=== PATIENT | male | born 1965 | race Caucasian/White ===

== ENCOUNTER 2021-09-20 12:19 | Emergency (ER) | payer OTHER, SELFPAY ==
--- NOTE | ~2021-09-20 | CT_ITS ---
EXAMINATION: CT abdomen pelvis w con DATE: 09/20/2021 13:45 INDICATION: Abdominal pain TECHNIQUE: Computed tomography (CT) of the abdomen and pelvis was performed with 100 mL Omnipaque-350 intravenous contrast. Automated exposure control and iterative reconstruction technique were employe d. The dose-length product was 593.65 mGy-cm. COMPARISON: None. FINDINGS: Mild groundglass opacities the bilateral lung bases with some smooth septal line thickening in the ba silar left lower lobe consistent with mild pulmonary edema. No pleural effusion or pneumothorax. Hear t size is normal. Small pericardial effusion. Mild wall thickening in the distal esophagus suspicious for esophagitis. Subcentimeter low-attenuation cyst in the left hepatic lobe. Gallbladder, spleen, p ancreas and right kidney are normal. 4.7 cm cyst at the upper pole of the left kidney. There is nodul ar thickening of the bilateral adrenal glands with 1.7 cm enhancing nodule in the left and with 2 hyp oenhancing nodular regions on the right, the larger measuring 2.3 x 1.5 cm bowels including the appen jono are normal. Small amount of scattered colonic stool. Bladder is normal. Prostatomegaly measuring 4.4 x 3.2 cm. No free intraperitoneal gas or fluid. No pathologically enlarged abdominal or pelvic ly mphadenopathy. Mild lumbar and lower thoracic spondylosis. 9 mm lytic lesion at the inferior left fem oral head. IMPRESSION: 1. No acute intra-abdominal/pelvic process. 2. Small pericardial effusion. 3. Wall thickening the distal esophagus suspicious for esophagitis which could be infectious, inflamm atory in etiology or due to reflux. 4. Nodular thickening the bilateral adrenal glands, enhancement in the left and lower attenuation in the right which raises concern for metastatic disease. Correlate with any prior outside imaging. 5. Indeterminate 9 mm lytic lesion at the left femoral head also raising suspicion for metastatic dis ease. Most helpful for determining pole of suspicion would be comparison with any prior outside imagi ng. Reviewed, dictated and finalized at location A. IMPRESSION: 1. No acute intra-abdominal/pelvic process. 2. Small pericardial effusion. 3. Wall thickening the distal esophagus suspicious for esophagitis which could be infectious, inflammatory in etiology or due to reflux. 4. Nodular thickening the bilateral adrenal glands, enhancement in the left and lower attenuation in the right which raises concern for metastatic disease. Co rrelate with any prior outside imaging. 5. Indeterminate 9 mm lytic lesion at the left femoral head also raising suspic ion for metastatic disease. Most helpful for determining pole of suspicion woul d be comparison with any prior outside imaging.
[2021-09-20 12:22] VITALS: BP 111/88; PULSE 134; RESP 18; TEMP 36.3; O2SAT 97
--- NOTE | 2021-09-20 12:30 | ED.GENADULT ---
HPI - General Adult General Chief complaint: Nausea/Vomiting/Diarrhea Stated complaint: constipation Time Seen by Provider: 09/20/21 12:26 Source: RN notes reviewed History of Present Illness HPI narrative: Patient presents emergency department from home for nausea vomiting and abdominal pain. Patient states that he has been unable to have bowel movement for the past 11 days he states that beginning 6 days ago he began to experience nausea vomiting is been unable to keep anything down. States that the symptoms are associated with pain in the bilateral lower abdomen described as cramping in nature denies any fevers or chills, chest pain shortness of breath or any other symptoms patient does have a history of lung cancer is currently going through radiation and chemo with his last chemo treatment 1 week ago he has followed at [facility] Related Data Allergies Allergy/AdvReac Type Severity Reaction Status Date / Time codeine AdvReac Other Verified 09/20/21 12:48 Review of Systems Review of Systems: Gen.: Denies fevers or chills ENT: Denies congestion Respiratory: Denies shortness of breath or cough CV: Denies chest pain or palpitations GI: See HPI denies burning, urgency, frequency or hematuria Musculoskeletal: Denies back pain or muscle pain Neuro: Denies numbness, tingling, weakness or focal weakness Skin: Denies rash Except as documented, all other systems reviewed and negative [facility] Past Medical History Medical History (Updated 09/20/21 @ 17:21 by Julito Kurtz DO) Lung cancer Social History Social History (Updated 09/20/21 @ 12:31 by Julito Kurtz DO) Smoking status: Former smoker Exam Narrative: APPEARANCE: No acute distress, nontoxic, resting in bed HEENT: Normocephalic, atraumatic, OMM RESPIRATORY: No respiratory distress, clear to auscultation bilaterally with no rhonchi wheezing or rales CARDIOVASCULAR: Tachycardic and regular s murmur ABDOMINAL: Soft nondistended tender palpation right lower quadrant left lower quadrant no tenderness right upper quadrant left upper quadrant no rebound or guarding MUSCULOSKELETAl: Moves all extremities. No clubbing, cyanosis or edema. NEURO: Awake and alert. Following commands, speech normal, no focal deficits SKIN:: Warm, dry. Normal Color PSYCHIATRIC: Normal affect/mood Course Course Emergency Course: Patient states he has had ongoing problem with nausea vomiting states that he needs referral to GI states he is on several antiemetics at home Called discussed with Dr. Manuel for oncology presentation work-up Mr. Manuel the patient agrees with plan for discharge with follow-up as an outpatient Patient able to drink in ED with no difficulty Discussed with patient results of workup and diagnosis. Discussed need for follow-up with primary care, proper use of medication, and reasons to return to the emergency department. Patient understands and agrees to current treatment plan Vital Signs Vital signs: Vital Signs Temperature 97.4 F L 09/20/21 12:22 Pulse Rate 134 H 09/20/21 12:22 Respiratory Rate 18 09/20/21 12:22 Blood Pressure 111/88 09/20/21 12:22 Pulse Oximetry 97 09/20/21 12:22 Temperature 97.4 F L 09/20/21 12:22 Pulse Rate 97 09/20/21 14:06 Respiratory Rate 19 09/20/21 14:06 Blood Pressure 108/75 09/20/21 14:06 Pulse Oximetry 100 09/20/21 14:06 Medical Decision Making Vital Signs Vital Signs: Vital Signs Temperature 97.4 F L 09/20/21 12:22 Pulse Rate 134 H 09/20/21 12:22 Respiratory Rate 18 09/20/21 12:22 Blood Pressure 111/88 09/20/21 12:22 Pulse Oximetry 97 09/20/21 12:22 Temperature 97.4 F L 09/20/21 12:22 Pulse Rate 97 09/20/21 14:06 Respiratory Rate 19 09/20/21 14:06 Blood Pressure 108/75 09/20/21 14:06 Pulse Oximetry 100 09/20/21 14:06 Lab Data Result diagrams: 09/20/21 12:49 09/20/21 12:49 Labs: Lab Results 09/20/2109/20
[2021-09-20 12:55] LABS: Basophils Percent Auto 0.3 % (0.2-1.2); Eosinophils Percent Auto 0.6 % (0-4.4); Hematocrit 37.6 % (42.0-52.0); Hemoglobin 12.6 g/dL (14.0-18.0); Immature Granulocyte Absolute 0.02 K/mm3 (0.00-0.031); Immature Granulocyte Percent A 0.6 % (0-0.5); Lymphocytes Absolute Auto 1.07 K/mm3 (0.9-3.2); Lymphocytes Percent Auto 34.2 % (18.3-44.2); Mean Corpuscular HGB Conc 33.5 g/dl (32-36); Mean Corpuscular Hemoglobin 30.1 pg (26-34); Mean Platelet Volume 10.4 fl (7.4-10.4); Monocytes Absolute Auto 0.9 K/mm3 (0.1-0.6); Neutrophils Absolute Auto 1.1 K/mm3 (1.3-6.7); Neutrophils Percent Auto 34.3 % (45.5-73.1); Platelet Count Result 141 k/mm3 (150-375); Red Blood Count 4.18 M/mm3 (4.6-6.20); Red Cell Distribution Width 13.7 % (11.5-14.5); White Blood Count 3.1 K/mm3 (4.5-10.0)
[2021-09-20] MEDS: ONDANSETRON INJ 4 MG/2 ML VIAL IV PUSH (12:59)
[2021-09-20] MEDS: SODIUM CHLORIDE 0.9% IV 1,000 ML 999 ML IV CONT (13:00)
[2021-09-20 13:05] LABS: Alanine Aminotransferase 47 U/L (4-50); Albumin Level 4.3 g/dL (3.5-5.1); Alkaline Phosphatase 82 U/L (38-126); Anion Gap 9 mmol/L (8-16); Aspartate Amino Transferase 38 U/L (17-59); Bilirubin,Total 0.9 mg/dL (0.2-1.3); Blood Urea Nitrogen 17 mg/dL (9-20); Calcium 9.3 mg/dL (8.4-10.2); Carbon Dioxide 27 mmol/L (22-30); Chloride 96 mmol/L (98-107); Estimated CRCL calculation 86 ml/min; Estimated Glomerular Filt Rate > 60; Glucose 180 mg/dL (65-110); Lipase 17 U/L (23-300); Magnesium 2.1 mg/dL (1.6-2.3); Potassium 3.9 mmol/L (3.4-5.0); Sodium 132 mmol/L (137-145)
[2021-09-20 13:05] LABS: Lactic Acid Reflex 1.9 mmol/L (0.7-2.1)
[2021-09-20 13:07] LABS: INR 1.1; Prothrombin Time 13.3 Seconds (11.1-14.7)
--- NOTE | 2021-09-20 13:07 | PC.NURSE ---
This RN talked with MD about morphine and Pt allergy to codeine, MD Kurtz will come to the bedside and speak with Pt this RN will hold medication until MD gives the authority to give medication. Pt cont to be stable at this time.
[2021-09-20 13:08] LABS: Partial Thromboplastin Time 31.5 SECONDS (22.3-36.8)
[2021-09-20 13:20] VITALS: BP 117/83; PULSE 97; RESP 18
[2021-09-20 13:49] VITALS: PULSE 99; RESP 24; O2SAT 100
[2021-09-20 14:06] VITALS: BP 108/75; PULSE 97; RESP 19; O2SAT 100
--- NOTE | 2021-09-20 15:54 | PC.NURSE ---
Patient given a macey mist and crackers. Advised to notify RN if he had any n/v.
--- NOTE | 2021-09-20 16:31 | PC.NURSE ---
Patient tolerated crackers and macey mist without n/v. States he still has pain and gas.
[2021-09-20 17:37] VITALS: BP 103/79; PULSE 95; RESP 18; O2SAT 99
== END 2021-09-20 17:37 | disposition home or self-care (01) ==
PROVIDERS: Emergency Provider Emergency Medicine; PCP Nurse Practitioner Family
DX: R11.2 Nausea with vomiting, unspecified (principal); D61.818 Other pancytopenia; C34.90 Malignant neoplasm of unspecified part of unspecified bronchus or lung; Z79.899 Other long term (current) drug therapy; Z87.891 Personal history of nicotine dependence; M89.9 Disorder of bone, unspecified; R93.3 Abnormal findings on diagnostic imaging of other parts of digestive tract
CPT/HCPCS: 36415; 74177; 80053; 83605; 83690; 83735; 85025; 85610; 85730; 96361; 96374; 99284; J0131; J2405; J7030; Q9967

== ENCOUNTER 2021-09-25 17:12 | Inpatient (IN) | payer OTHER, SELFPAY ==
[2021-09-25] VITALS (15 sets, daily range): BP systolic 99–130; BP diastolic 61–89; PULSE 90–115; RESP 16–28; TEMP 36.9–37; O2SAT 94–100; BMI 25.4
--- NOTE | ~2021-09-25 | CT_ITS ---
EXAMINATION: CTA chest PE protocol EXAM DATE: 09/30/2021 23:23 INDICATION: Low 02 sat/tachycardia. TECHNIQUE: Spiral CTA of the chest (pulmonary arteries) was performed with 100 cc Omnipaque 350 intr avenous contrast injection. Images were acquired during the pulmonary arterial phase. Coronal maxi mum intensity projection 3D-reconstructions were created by the technologist on dedicated workstation . Axial, coronal and sagittal reformatted images were reviewed. The dose-length product (DLP) for t his examination was 494.28 mGy-cm. The exposure was tailored according to patient size (auto mA exp osure control), and iterative reconstruction (ASIR) was used as additional dose reduction technique. There is no prior study for comparison. FINDINGS: Pulmonary arteries are well opacified and without intraluminal filling defects. No thora cic aortic dissection. There is spiculated left upper lobe nodule measuring 2.0 x 1.3 cm, appearance most consistent with pr imary lung cancer. There is moderate to severe upper lobe predominant emphysema. There is basilar rosa isela ewhat groundglass airspace disease with more confluent and patchy distribution. There is ill-defined infiltrative appearing soft tissue density in the aorta pulmonary window and in the left hilum, appea leroy could indicate metastatic disease from suspected lung cancer. Right hilar lymph node enlarged a t 1.6 x 2.1 cm. Recommend PET/CT. Groundglass opacity can be caused acutely by edema, infection (viral pneumonia or PCP in immunocompro mised patients), or hemorrhage. It can also be caused by chronic processes such as hypersensitivity pneumonitis, nonspecific interstitial pneumonitis (NSIP), cryptogenic organized pneumonia, desquamati ve interstitial pneumonitis(DIP). There are no pleural or pericardial effusions. Tracheobronchial tree is patent. There is no pneum othorax. Heart normal in size. Bilateral adrenal gland nodularity, possible metastatic disease ve rsus adenomas. There is thoracic spondylosis without osteoblastic or osteolytic lesions identified. IMPRESSION: 1. Left upper lobe spiculated nodule most consistent with primary lung cancer. 2. Infiltrative appearing left hilar and aortopulmonary window soft tissue. 3. Right hilar lymphadenopathy. 4. Rather diffuse but basilar predominant groundglass airspace disease, could be edema but nonspecif ic with differential considerations above. 5. Bilateral adrenal gland nodule, indeterminate. 6. Recommend PET/CT. Reviewed, dictated and finalized at location G. IMPRESSION: 1. Left upper lobe spiculated nodule most consistent with primary lung cancer. 2. Infiltrative appearing left hilar and aortopulmonary window soft tissue. 3. Right hilar lymphadenopathy. 4. Rather diffuse but basilar predominant groundglass airspace disease, could be edema but nonspecific with differential considerations above. 5. Bilateral adrenal gland nodule, indeterminate. 6. Recommend PET/CT.
--- NOTE | ~2021-09-25 | XR_ITS ---
XR chest 2V DATE: 09/25/2021 19:20 INDICATION: Cough. Vomiting. Evaluate for aspiration. Lung cancer. Hypertension. TECHNIQUE: AP and lateral views COMPARISON: None FINDINGS: Normal heart size. No hilar or mediastinal enlargement. There is a sparsity of bronchovascular markings in the right upper lung likely due to bullous change. Mild accentuation of interstitial markings is noted throughout the lung huizar.. The findings likely represent bullous emphysema and pulmonary fibrosis. No pulmonary consolidation, pleural effusion, pulmonary vascular congestion or pneumothorax is detect ed. There is osteoarthritic change at the included left glenohumeral joint. There is degenerative change at the acromion clavicular joints. IMPRESSION: Bullous emphysema and chronic interstitial changes No pulmonary infiltrate or consolidation is evident Reviewed, dictated and finalized at location A.
--- NOTE | ~2021-09-25 | NM_ITS ---
EXAM: NM gastric emptying study DATE: 10/05/2021 12:15 INDICATION: Nausea and vomiting. TECHNIQUE: A gastric emptying study was performed using the methodology of Ashvin COMBS, et al. J Nucl Med 2007; 48:568-572. The patient was given a meal consisting of 2 scrambled eggs labeled with 0.968 mCi Tc-99m sulfur colloid, 2 slices of toast, two packages of jam, and approximately 120 mL of water . Simultaneous anterior and posterior 1-min images of the abdomen were obtained with the patient supi ne at multiple time points over a total period of 2 hours and 45 minutes at which point the patient v omited. The geometric mean of anterior and posterior views was determined, and the percentage retenti on was calculated for each time point. COMPARISON: CT abdomen and pelvis 09/20/2021 FINDINGS: Gastric retention of the radiotracer-labeled meal was 99% and 95% at the 1-hour and 2-hour time points, respectively. With this technique, apparent rapid gastric emptying is suggested by <30% gastric retention at 1 hour. Delayed gastric emptying is defined by gastric retention of >90% at 1 h our, >60% retention at 2 hours, or >10% retention at 4 hours. IMPRESSION: 1. Delayed gastric emptying. Reviewed, dictated and finalized at location A.
--- NOTE | 2021-09-25 17:20 | ED.NAVMDI ---
HPI - Nausea/Vomiting/Diarrhea General Chief complaint: Nausea/Vomiting/Diarrhea Stated complaint: N/V/ CHEMO Time Seen by Provider: 09/25/21 17:17 Source: patient Mode of arrival: ambulatory Limitations: no limitations History of Present Illness HPI Narrative: Patient is a 56-year-old male who presents the ED with report of nausea and vomiting. Patient has a history of metastatic lung cancer and is currently receiving chemotherapy infusion treatment [id number] (Keytruda, Alimta) at [facility] under Dr. Metcalf. His last chemotherapy treatment was 2 weeks ago, with the next treatment on the . He reports he has had nausea and vomiting for 1 week. He states he is unable to keep down any food for the past week and can only take small sips of water. He states he can go to an entire day without urinating as he is hardly drinking anything. He did urinate a small amount this morning. Patient was seen in the ED for his N/V on 09/20, at which point he was given fluids and Zofran and passed a p.o. challenge before being discharged home. Patient reports he began vomiting again that night. He does have Reglan and Zofran at home, but denies any relief with this. He notified his oncologist of his ED visit and is scheduled to see a car shagger, Dr. Joseph, on 10/05 in [place]. Patient reported having constipation last week, but states he had a bowel movement 2 days ago, which was diarrhea. No rectal bleeding. He also mentions feeling weak and fatigued and having shortness of breath, described as though he cannot catch his breath. He denies any abdominal pain, cough, congestion, fever, chills, chest pain, dysuria, hematuria, focal weakness. Related Data Home Medications Medication Instructions Recorded Confirmed albuterol sulfate 2 puff INHALATION Q4H PRN 09/25/21 09/25/21 dronabinol 2.5 mg PO BID 09/25/21 09/25/21 folic acid 1 mg PO DAILY 09/25/21 09/25/21 lactulose [Enulose] 15 ml PO TID PRN 09/25/21 09/25/21 lorazepam 1 mg PO HS 09/25/21 09/25/21 metformin 1,000 mg PO BID 09/25/21 09/25/21 metoclopramide HCl 5 mg PO TID 09/25/21 09/25/21 ondansetron 4 mg PO Q8H PRN 09/25/21 09/25/21 ondansetron HCl 8 mg PO Q4H PRN 09/25/21 09/25/21 pantoprazole 40 mg PO HS 09/25/21 09/25/21 Allergies Allergy/AdvReac Type Severity Reaction Status Date / Time codeine AdvReac Other Verified 09/25/21 22:45 Review of Systems Review of Systems: CONSTITUTIONAL: Reports fatigue, generalized weakness. Denies fever, chills, or sweats. ENT: Denies rhinorrhea, congestion. CARDIOVASCULAR: Denies chest pain. RESPIRATORY: Reports shortness of breath. Denies cough. GASTROINTESTINAL: Reports nausea, vomiting, diarrhea. Denies abdominal pain. GENITOURINARY: Reports oliguria. Denies dysuria or hematuria. NEUROLOGIC: Denies headache, numbness, or focal weakness. All systems reviewed & are unremarkable except as noted in HPI and below PMFSH Past Medical History Medical History (Updated 09/25/21 @ 21:13 by Bernie Perrin PA-C) Hypertension Lung cancer Surgical History Surgical History (Updated 09/25/21 @ 18:18 by Bernie Perrin PA-C) No pertinent past surgical history Family History Family History (Updated 09/25/21 @ 23:07 by Dania Fuentes RN) Sibling Throat cancer Social History Social History (Updated 09/25/21 @ 18:19 by Bernie Perrin PA-C) Years smoked: 40 Smoking status: Former smoker Tobacco type: cigarettes Smoking end date: 12/08/20 Alcohol intake: never Substance use: never Substance use type: does not use Spiritual care concerns: No Exam Narrative: GENERAL: Chronically ill appearing, non-toxic, in no acute distress. HEAD: Normocephalic, atraumatic. EYES: EOMI, conjunctivae clear bilaterally. THROAT: Pharynx clear, no exudate. MMs dry. NECK: Supple. No adenopathy, no masses. RESPIRATORY: Airway patent. Tachypnea. Clear to auscultation bilaterally, no rales, rhonchi, wheezing. CARDIOVASCULAR:
[2021-09-25 18:04] LABS: Basophils Percent Auto 0.3 % (0.2-1.2); Eosinophils Absolute Auto 0.1 K/mm3 (0-0.3); Eosinophils Percent Auto 1.2 % (0-4.4); Hematocrit 37.6 % (42.0-52.0); Hemoglobin 12.4 g/dL (14.0-18.0); Immature Granulocyte Absolute 0.09 K/mm3 (0.00-0.031); Immature Granulocyte Percent A 1.2 % (0-0.5); Lymphocytes Absolute Auto 1.12 K/mm3 (0.9-3.2); Lymphocytes Percent Auto 15.2 % (18.3-44.2); Mean Corpuscular Hemoglobin 30.3 pg (26-34); Mean Corpuscular Volume 91.9 fl (80-100); Mean Platelet Volume 10.6 fl (7.4-10.4); Monocytes Absolute Auto 2.5 K/mm3 (0.1-0.6); Monocytes Percent Auto 34.4 % (2.6-8.5); Neutrophils Absolute Auto 3.5 K/mm3 (1.3-6.7); Neutrophils Percent Auto 47.7 % (45.5-73.1); Platelet Count Result 188 k/mm3 (150-375); Red Blood Count 4.09 M/mm3 (4.6-6.20); Red Cell Distribution Width 14.1 % (11.5-14.5); White Blood Count 7.4 K/mm3 (4.5-10.0)
[2021-09-25] MEDS: ONDANSETRON INJ 4 MG/2 ML VIAL IV PUSH (18:04)
[2021-09-25] MEDS: SODIUM CHLORIDE 0.9% IV 1,000 ML 999 ML IV CONT ×2 (18:04→20:06)
[2021-09-25 18:18] LABS: Alanine Aminotransferase 28 U/L (4-50); Albumin Level 4.2 g/dL (3.5-5.1); Alkaline Phosphatase 77 U/L (38-126); Anion Gap 11 mmol/L (8-16); Aspartate Amino Transferase 35 U/L (17-59); Bilirubin,Total 0.8 mg/dL (0.2-1.3); Blood Urea Nitrogen 11 mg/dL (9-20); Calcium 8.9 mg/dL (8.4-10.2); Carbon Dioxide 23 mmol/L (22-30); Chloride 95 mmol/L (98-107); Estimated CRCL calculation 95 ml/min; Estimated Glomerular Filt Rate > 60; Glucose 124 mg/dL (65-110); Lipase 17 U/L (23-300); Potassium 3.9 mmol/L (3.4-5.0); Sodium 129 mmol/L (137-145)
[2021-09-25] MEDS: METOCLOPRAMIDE HCL INJ 10 MG/2 ML VIAL IV PUSH (20:09)
--- NOTE | 2021-09-25 21:03 | PM.IMHP ---
H&P: HPI History of Present Illness Date/Time: 09/25/21 21:03 Chief Complaint: Nausea and vomiting. Narrative: This is a 56-year-old male with past medical history significant for lung cancer with metastatic disease undergoing radiation and chemotherapy. Patient presents to the emergency room due to nausea vomiting for the last 10-12 days or so with constipation had 1 bowel movement and he was diarrhea has not been able to eat any food due to nausea and vomiting unrelenting patient denies any fevers rigors chills cough sputum production shortness of breath he feels fatigue, and decreased stamina. Preliminary workup has been significant for sodium of 129, a chest x-ray was significant for bullous disease but no infiltrates. Decision has been made to admit patient for further evaluation, management and treatment. Review of Systems Review of Systems: Nausea vomiting, constipation, fatigue. Weight loss. Constitutional: Constitutional: Denies chills, Reports fatigue, Denies fever(s), Reports lethargy, Denies night sweats, Reports poor appetite and Reports weakness Eyes: Eyes: Denies change in vision ENT: Denies dysphagia, Denies vertigo, Denies dizziness, Denies nasal congestion, Denies nasal discharge, Denies nasal obstruction and Denies odynophagia Cardiovascular: Cardiovascular: Denies pedal edema, Denies claudication, Denies leg edema, Denies lightheadedness, Denies radiating jaw, neck or arm pain, Denies palpitations and Denies dyspnea on exertion Respiratory: Respiratory: Denies cough and Denies dyspnea Gastrointestinal: Gastrointestinal: Denies abdominal pain, Denies dyspepsia, Denies heartburn, Reports nausea and Reports vomiting Genitourinary: Genitourinary: Denies dysuria and Denies flank pain Musculoskeletal: Musculoskeletal: Denies arthralgias and Denies joint swelling Integumentary/Breasts: Skin/Breast: Denies rash Neurologic: Denies vertigo, Denies dizziness, Denies focal weakness and Denies Sensory deficit (Neuro) Psychiatric: Psychiatric: Reports no additional psychiatric complaints and Reports as per HPI Endocrine: Endocrine: Denies cold intolerance, Denies heat intolerance, Denies polyphagia, Denies polydipsia and Denies palpitations Hematologic/Lymphatic: Hematologic/Lymphatic: Reports no additional hematologic/lymphatic complaints and Reports as per HPI Allergic/Immunologic: Allergic/Immunologic: Reports no additional allergic/immunologic complaints and Reports as per HPI PMFSH Past Medical History Medical History (Updated 09/25/21 @ 21:13 by Bernie Perrin PA-C) Hypertension Lung cancer Surgical History Surgical History (Updated 09/25/21 @ 18:18 by Bernie Perrin PA-C) No pertinent past surgical history Family History Family History (Updated 09/25/21 @ 23:07 by Dania Fuentes RN) Sibling Throat cancer Social History Social History (Updated 09/25/21 @ 18:19 by Bernie Perrin PA-C) Years smoked: 40 Smoking status: Former smoker Tobacco type: cigarettes Smoking end date: 12/08/20 Alcohol intake: never Substance use: never Substance use type: does not use Spiritual care concerns: No Meds Home Medications and Allergies Home Medications Medication Instructions Recorded Confirmed Type albuterol sulfate 2 puff INHALATION Q4H PRN 09/25/21 09/25/21 History dronabinol 2.5 mg PO BID 09/25/21 09/25/21 History folic acid 1 mg PO DAILY 09/25/21 09/25/21 History lactulose [Enulose] 15 ml PO TID PRN 09/25/21 09/25/21 History lorazepam 1 mg PO HS 09/25/21 09/25/21 History metformin 1,000 mg PO BID 09/25/21 09/25/21 History metoclopramide HCl 5 mg PO TID 09/25/21 09/25/21 History ondansetron 4 mg PO Q8H PRN 09/25/21 09/25/21 History ondansetron HCl 8 mg PO Q4H PRN 09/25/21 09/25/21 History pantoprazole 40 mg PO HS 09/25/21 09/25/21 History Allergies Allergy/AdvReac Type Severity Reaction Status Date / Time codeine AdvReac Other Verified 09/25/21 22:45 Vital Signs
[2021-09-25] MEDS: PANTOPRAZOLE SODIUM IV 40 MG VIAL IV PUSH (21:35)
--- NOTE | 2021-09-25 21:54 | PC.NURSE ---
Patient care report called to VARSHA Rust. All questions answered at this time.
--- NOTE | 2021-09-25 22:25 | ADMGEN ---
This patient, Rene De Anda, was admitted to Medical Room 249-01. Patient/family oriented to hospital policies and general routines including ID bracelet, bed and alarms, visiting hours, pain management, procedures, bathroom and other care routines, personal items, smoking policy, room service/diet, and visiting hours. Information on how to activate the Rapid Response Team has been discussed. Patient/Family are encouraged to report perceived risks to care and to ask questions if they do not understand what they are told or what they should do.
[2021-09-25] MEDS: SODIUM CHLORIDE 0.9% IV 1,000 ML 125 ML IV CONT (22:58)
[2021-09-26] VITALS: BP 107/66
[2021-09-26] MEDS: SUCRALFATE 1 GM TABLET PO ×6 (00:02→20:06)
[2021-09-26] MEDS: LORazepam INJ (*CRX) 2 MG/ML VIAL 1 MG IV PUSH (00:02)
[2021-09-26 02:04] LABS: Add Urine Microscopic? YES; Appearance Urine Clear (Clear); Bilirubin Urine Negative (Negative); Blood Urine Negative (Negative); Color Urine Yellow (Yellow); Glucose Urine UA Negative (Negative); Ketones Urine Trace mg/dL (Negative); Leukocyte Esterase Ur Negative LEU/UL (Negative); Mucus Urine Few /lpf; Nitrate Urine Negative (Negative); Protein Urine Negative (Negative); RBC Urine 0-2 /hpf (0-2); Specific Grav Ur 1.015 (1.001-1.035); Urobilinogen Urine Negative mg/dL (<2.0); WBC Urine 0-3 /hpf
[2021-09-26 05:47] LABS: Anion Gap 5 mmol/L (8-16); Blood Urea Nitrogen 10 mg/dL (9-20); Calcium 8.3 mg/dL (8.4-10.2); Carbon Dioxide 25 mmol/L (22-30); Chloride 101 mmol/L (98-107); Estimated CRCL calculation 86 ml/min; Estimated Glomerular Filt Rate > 60; Glucose 112 mg/dL (65-110); Potassium 4.1 mmol/L (3.4-5.0); Sodium 131 mmol/L (137-145)
[2021-09-26 06:00] VITALS: BP 104/71; PULSE 70; RESP 16; TEMP 38.2; O2SAT 94
[2021-09-26 08:00] VITALS: PULSE 70; RESP 16; O2SAT 94
[2021-09-26 08:01] LABS: Glucose Point of Care 132 mg/dl (65-105)
--- NOTE | 2021-09-26 08:58 | PM.IMPN ---
Progress Note: A&P Assessment and Plan (1) Intractable nausea and vomiting: Code(s): R11.2 - Nausea with vomiting, unspecified Status: Acute Assessment and Plan: Admit to regular medical floor Clear liquid diet and advanced as tolerated Supportive care Likely secondary to chemotherapy treatment recent ct abdomen ; Abdomen/Pelvis CT 09/20/21 13:46 IMPRESSION: 1. No acute intra-abdominal/pelvic process. 2. Small pericardial effusion. 3. Wall thickening the distal esophagus suspicious for esophagitis which could be infectious, inflammatory in etiology or due to reflux. 4. Nodular thickening the bilateral adrenal glands, enhancement in the left and lower attenuation in the right which raises concern for metastatic disease. Correlate with any prior outside imaging. 5. Indeterminate 9 mm lytic lesion at the left femoral head also raising suspicion for metastatic disease. Most helpful for determining pole of suspicion would be comparison with any prior outside imaging. already on PPI and sucralfate. he is going to see Dr. Joseph in october 05. continue current supportive care. advance to full liquid today. GI consultation if the nausea, vomiting snowden snot resovle. (2) Acute hyponatremia: Code(s): E87.1 - Hypo-osmolality and hyponatremia Status: Acute Assessment and Plan: Likely secondary to GI losses and poor oral intake Receiving NS 0.9 na level is imporved. decrease NS to 75 cc/hr (3) Metastatic lung cancer (metastasis from lung to other site): Qualifiers: Laterality: unspecified laterality Qualified Code(s): C34.90 - Malignant neoplasm of unspecified part of unspecified bronchus or lung Code(s): C34.90 - Malignant neoplasm of unspecified part of unspecified bronchus or lung Status: Acute Assessment and Plan: Patient is currently undergoing chemotherapy and radiation treatment Follow-up in outpatient setting. (4) Fever: Code(s): R50.9 - Fever, unspecified Status: Acute Assessment and Plan: fever spike this am. no apparent signs of infection. will continue to monitor for now Subjective Date/time seen: 09/26/21 08:58 Interval history: HPI: This is a 56-year-old male with past medical history significant for lung cancer with metastatic disease undergoing radiation and chemotherapy. Patient presents to the emergency room due to nausea vomiting for the last 10-12 days or so with constipation had 1 bowel movement and he was diarrhea has not been able to eat any food due to nausea and vomiting unrelenting patient denies any fevers rigors chills cough sputum production shortness of breath he feels fatigue, and decreased stamina. Preliminary workup has been significant for sodium of 129, a chest x-ray was significant for bullous disease but no infiltrates. Decision has been made to admit patient for further evaluation, management and treatment. 09/26/2021 feeling a bit better today. no nausea, vomitng. toelrated clear liquid today. had a spike of fever this am, no sob, chest pain. feels tired. Review of Systems Review of Systems: All systems reviewed & are unremarkable except as noted in HPI and below (HPI) Exam Narrative: Patient is laying in gurney Const: General: comfortable, no acute distress, well developed, alert, awake, ill appearing and tired appearing Nutritional Appearance: thin Orientation/consciousness: patient oriented x3 HENMT: Head: normal to inspection, normocephalic and atraumatic Ears: hearing grossly normal bilaterally General nose exam: Normal external nose present Face and sinus: normal facial exam Mouth: Yes moist mucous membranes Eyes: General: appearance normal, both eyes and all related structures Alignment and Position: alignment normal Sclera: sclerae normal Pupils: Equal, round and reactive pupils present EOM: EOMs intact bilaterally Neck: Neck: normal visual inspection, full ROM, no lymphadenopathy, supple and no JV
[2021-09-26] MEDS: SODIUM CHLORIDE 0.9% IV 1,000 ML 125 ML IV CONT (09:18)
[2021-09-26] MEDS: FOLIC ACID 1 MG TABLET PO (09:20)
[2021-09-26] MEDS: PANTOPRAZOLE SODIUM IV 40 MG VIAL IV PUSH ×2 (09:20→20:07)
[2021-09-26 10:15] VITALS: BP 96/65; PULSE 110; RESP 18; TEMP 38; O2SAT 92
[2021-09-26 11:57] LABS: Glucose Point of Care 109 mg/dl (65-105)
[2021-09-26 14:00] VITALS: BP 105/66; PULSE 94; RESP 16; TEMP 36.6; O2SAT 96
[2021-09-26] MEDS: SODIUM CHLORIDE 0.9% IV 1,000 ML 75 ML IV CONT (15:44)
[2021-09-26 16:41] LABS: Glucose Point of Care 104 mg/dl (65-105)
[2021-09-26 19:14] VITALS: BP 100/60; PULSE 101; RESP 18; TEMP 36.3; O2SAT 97
[2021-09-26] MEDS: LORazepam (*CRX) 1 MG TABLET PO (20:06)
[2021-09-26 21:20] LABS: Glucose Point of Care 108 mg/dl (65-105)
[2021-09-27] MEDS: SUCRALFATE 1 GM TABLET PO ×6 (00:52→20:24)
[2021-09-27 03:07] VITALS: BP 100/66; PULSE 111; RESP 17; TEMP 37.1; O2SAT 91
[2021-09-27] MEDS: SODIUM CHLORIDE 0.9% IV 1,000 ML 75 ML IV CONT ×2 (05:15→23:33)
[2021-09-27 05:22] LABS: Basophils Percent Auto 0.3 % (0.2-1.2); Eosinophils Absolute Auto 0.1 K/mm3 (0-0.3); Eosinophils Percent Auto 1.4 % (0-4.4); Hematocrit 29.6 % (42.0-52.0); Hemoglobin 9.8 g/dL (14.0-18.0); Immature Granulocyte Absolute 0.09 K/mm3 (0.00-0.031); Immature Granulocyte Percent A 1.3 % (0-0.5); Lymphocytes Percent Auto 14.2 % (18.3-44.2); Mean Corpuscular HGB Conc 33.1 g/dl (32-36); Mean Corpuscular Hemoglobin 30.2 pg (26-34); Mean Corpuscular Volume 91.4 fl (80-100); Mean Platelet Volume 10.5 fl (7.4-10.4); Monocytes Absolute Auto 2.5 K/mm3 (0.1-0.6); Monocytes Percent Auto 35.8 % (2.6-8.5); Neutrophils Absolute Auto 3.3 K/mm3 (1.3-6.7); Platelet Count Result 188 k/mm3 (150-375); Red Blood Count 3.24 M/mm3 (4.6-6.20); Red Cell Distribution Width 14.1 % (11.5-14.5)
[2021-09-27 05:33] LABS: Alanine Aminotransferase 17 U/L (4-50); Albumin Level 3.2 g/dL (3.5-5.1); Alkaline Phosphatase 57 U/L (38-126); Anion Gap 7 mmol/L (8-16); Aspartate Amino Transferase 27 U/L (17-59); Bilirubin,Total 0.9 mg/dL (0.2-1.3); Blood Urea Nitrogen 7 mg/dL (9-20); Calcium 8.1 mg/dL (8.4-10.2); Carbon Dioxide 23 mmol/L (22-30); Chloride 98 mmol/L (98-107); Estimated CRCL calculation 86 ml/min; Estimated Glomerular Filt Rate > 60; Glucose 101 mg/dL (65-110); Magnesium 1.7 mg/dL (1.6-2.3); Potassium 3.8 mmol/L (3.4-5.0); Sodium 128 mmol/L (137-145)
[2021-09-27] MEDS: PANTOPRAZOLE SODIUM IV 40 MG VIAL IV PUSH ×2 (08:38→20:20)
[2021-09-27] MEDS: FOLIC ACID 1 MG TABLET PO (08:38)
[2021-09-27 13:59] VITALS: BP 110/64; PULSE 95; RESP 14; TEMP 36.3; O2SAT 92
[2021-09-27] MEDS: ONDANSETRON INJ 4 MG/2 ML VIAL IV PUSH ×2 (14:02→20:24)
--- NOTE | 2021-09-27 14:45 | PM.IMPN ---
Progress Note: A&P Additional Plan 56-year-old male with past medical history significant for lung cancer with metastatic disease undergoing radiation and chemotherapy presented to the emergency room due to nausea vomiting for the last 10-12 days or so with constipation, fatigue and malaise. Preliminary workup has been significant for sodium of 129, a chest x-ray was significant for bullous disease but no infiltrates. (1) Intractable nausea and vomitin/2 chemotherapy c/w PRN Zofran IV fluids Clear liquid diet as tolerated c/w PPI Will consider GI consult if continues to have nausea (2) Acute hyponatremia: Hypo-osmolality and hyponatremia Likely secondary to GI losses and poor oral intake Receiving NS 0.9 na level is improved. c/w IV fluids (3) Metastatic lung cancer Patient is currently undergoing chemotherapy and radiation treatment Follow-up in outpatient setting. (4) Fever: no fever today Will monitor 5)Code:Full 6)DVT ppx: Hep SQ 7)Dispo:pending improvement Time Spent With Patient Time with patient: 25 - 35 minutes Subjective Date/time seen: 09/27/21 14:45 not feeling well, still feeling nauseous Review of Systems Review of Systems: All systems reviewed & are unremarkable except as noted in HPI and below Constitutional: Constitutional: Reports fatigue, Reports lethargy and Reports weakness Eyes: Eyes: Reports no additional eye complaints ENT: Reports system reviewed and no additional complaints, except as documented Cardiovascular: Cardiovascular: Reports no additional cardiovascular complaints Respiratory: Respiratory: Reports dyspnea Gastrointestinal: Gastrointestinal: Reports abdominal pain, Reports melena, Reports bloating and Reports hematochezia Musculoskeletal: Musculoskeletal: Reports no additional musculoskeletal complaints Exam Const: General: uncomfortable HENMT: Mouth: Yes dry mucous membranes Eyes: Pupils: Equal, round and reactive pupils present Neck: Neck: supple and no JVD Resp: Effort & Inspection: normal respiratory effort Cardio: Rate: regular rate Rhythm: regular rhythm GI: GI Palp: Yes Soft to palpation and Yes Tenderness to palpation present (GI) Skin: General skin exam: normal color Psych: Mental Status: mental status grossly normal Objective Data Vital Signs Vital Signs: Vital Signs - 24 hr 09/26/21 19:14 09/27/21 03:07 Temperature 97.3 F L 98.8 F Pulse Rate 101 H 111 H Respiratory Rate 18 17 Blood Pressure 100/60 100/66 Pulse Oximetry 97 91 Intake/Output Intake/Output: Intake & Output 03/18/22 03/19/22 03/20/22 03/21/22 23:59 23:59 23:59 23:59 Intake Total 1999 4360 1500 Output Total 1000 800 Balance 1999 3360 700 Meds/Results Medications: Active Medications Generic Name Dose Route Start Last Admin Trade Name Freq PRN Reason Stop Dose Admin Albuterol 2 puff 09/26/21 00:25 Albuterol Sulfate (*Sp) Aerosol 1 Puff INHALATION Q4HRT PRN Shortness Of Breath Dronabinol 2.5 mg 09/26/21 09:00 09/27/21 08:46 Dronabinol (*Crx) 2.5 Mg Capsule PO 2.5 mg Q12HR CLARKE Administration Folic Acid 1 mg 09/26/21 09:00 09/27/21 08:38 Folic Acid 1 Mg Tablet PO 1 mg DAILY CLARKE Administration Sodium Chloride 1,000 mls @ 75 mls/hr 09/25/21 21:10 09/27/21 05:15 Normal Saline Iv IV CONT 75 mls/hr .[id number] CLARKE Administration Lactulose 10 gm 09/26/21 00:25 Lactulose 20 Gm/30 Ml Udc PO TID PRN Constipation Lorazepam 1 mg 09/26/21 21:00 09/26/21 20:06 Lorazepam (*Crx) 1 Mg Tablet PO 1 mg HS CLARKE Administration Ondansetron HCl 4 mg 09/25/21 21:08 09/27/21 14:02 Ondansetron Inj 4 Mg/2 Ml Vial IV PUSH 4 mg Q4H PRN Administration Nausea Pantoprazole Sodium 40 mg 09/26/21 09:00 09/27/21 08:38 Pantoprazole Sodium Iv 40 Mg Vial IV PUSH 40 mg Q12HR CLARKE Administration Sucralfate 1 gm 09/26/21 01:00 09/27/21 12:06 Sucralfate 1 Gm Table
[2021-09-27 20:00] VITALS: PULSE 95; RESP 14; O2SAT 92
[2021-09-27] MEDS: LORazepam (*CRX) 1 MG TABLET PO (20:24)
[2021-09-27] MEDS: HEPARIN SODIUM 5,000 UNITS/ML VIAL 5000 UNITS SUB-Q (20:24)
[2021-09-27 21:31] VITALS: BP 101/67; PULSE 107; RESP 20; TEMP 37.2; O2SAT 94
[2021-09-28] VITALS (7 sets, daily range): BP systolic 92–117; BP diastolic 56–68; PULSE 98–123; RESP 16–20; TEMP 36.6–38; O2SAT 92–97
[2021-09-28] MEDS: SUCRALFATE 1 GM TABLET PO ×6 (00:48→20:32)
[2021-09-28] MEDS: CALCIUM CARBONATE (TUMS) 500 MG (200 MG ELEMENTAL) 400 MG PO (05:54)
[2021-09-28] MEDS: ACETAMINOPHEN 500 MG TABLET 1000 MG PO (05:55)
[2021-09-28 06:09] LABS: Anion Gap 6 mmol/L (8-16); Blood Urea Nitrogen 7 mg/dL (9-20); Carbon Dioxide 25 mmol/L (22-30); Chloride 100 mmol/L (98-107); Estimated CRCL calculation 95 ml/min; Estimated Glomerular Filt Rate > 60; Glucose 118 mg/dL (65-110); Magnesium 1.7 mg/dL (1.6-2.3); Potassium 3.6 mmol/L (3.4-5.0); Sodium 131 mmol/L (137-145)
--- NOTE | 2021-09-28 08:05 | PC.NURSE ---
spoke with Bryanna (IV specialist) about placing patient's IV. Patient has been stuck several times during previous shift and would prefer the use of ultrasound. Bryanna said she will make her way over when she is available around 0930. I will restart patient's IV fluids as well as give IV protonix once IV is placed.
[2021-09-28] MEDS: FOLIC ACID 1 MG TABLET PO (08:09)
[2021-09-28] MEDS: HEPARIN SODIUM 5,000 UNITS/ML VIAL 5000 UNITS SUB-Q ×2 (08:09→20:32)
--- NOTE | 2021-09-28 09:54 | PM.IMPN ---
Progress Note: A&P Assessment and Plan (1) Intractable nausea and vomiting: Code(s): R11.2 - Nausea with vomiting, unspecified Status: Acute Assessment and Plan: Continue current IV protonix and antiemetic consult GI if no improvement ct abdomen Abdomen/Pelvis CT 09/20/21 13:46 IMPRESSION: 1. No acute intra-abdominal/pelvic process. 2. Small pericardial effusion. 3. Wall thickening the distal esophagus suspicious for esophagitis which could be infectious, inflammatory in etiology or due to reflux. 4. Nodular thickening the bilateral adrenal glands, enhancement in the left and lower attenuation in the right which raises concern for metastatic disease. Correlate with any prior outside imaging. 5. Indeterminate 9 mm lytic lesion at the left femoral head also raising suspicion for metastatic disease. Most helpful for determining pole of suspicion would be comparison with any prior outside imaging. (2) Acute hyponatremia: Code(s): E87.1 - Hypo-osmolality and hyponatremia Status: Acute Assessment and Plan: Sodium is 131 continue fluids (3) Metastatic lung cancer (metastasis from lung to other site): Qualifiers: Laterality: unspecified laterality Qualified Code(s): C34.90 - Malignant neoplasm of unspecified part of unspecified bronchus or lung Code(s): C34.90 - Malignant neoplasm of unspecified part of unspecified bronchus or lung Status: Acute Assessment and Plan: Patient is currently undergoing chemotherapy and radiation treatment Follow-up in outpatient setting. (4) Fever: Code(s): R50.9 - Fever, unspecified Status: Resolved Subjective Date/time seen: 09/28/21 09:54 Interval history: 56-year-old male with past medical history significant for lung cancer with metastatic disease undergoing radiation and chemotherapy. Pt having intractable nausea and heart burn. Denies abdominal pain or diarrhea. CT shows esophagitis continue PPI and antiemetics for now. CT abdomen - 1. No acute intra-abdominal/pelvic process. 2. Small pericardial effusion. 3. Wall thickening the distal esophagus suspicious for esophagitis which could be infectious, inflammatory in etiology or due to reflux. 4. Nodular thickening the bilateral adrenal glands, enhancement in the left and lower attenuation in the right which raises concern for metastatic disease. Correlate with any prior outside imaging. 5. Indeterminate 9 mm lytic lesion at the left femoral head also raising suspicion for metastatic disease. Most helpful for determining pole of suspicion would be comparison with any prior outside imaging. Review of Systems Review of Systems: All systems reviewed & are unremarkable except as noted in HPI and below Exam HENMT: Head: normal to inspection Resp: Effort & Inspection: no respiratory distress Auscultation: no rhonchi and no wheezes Cardio: Rate: regular rate Rhythm: regular rhythm GI: Inspection: normal to inspection GI Palp: No abdominal tenderness, No Guarding due to palpation present (GI) and No Hepatomegaly present Auscultation: normal bowel sounds Neuro: General: oriented to person Objective Data Vital Signs Vital Signs: Vital Signs - 24 hr 09/27/21 13:59 09/27/21 20:00 09/27/21 21:31 Temperature 36.3 C L 37.2 C Pulse Rate 95 95 107 H Respiratory Rate 14 14 20 Blood Pressure 110/64 101/67 Pulse Oximetry 92 92 94 09/28/21 05:05 09/28/21 05:55 Temperature 37.8 C H 37.8 C H Pulse Rate 105 H Respiratory Rate 20 Blood Pressure 92/56 L Pulse Oximetry 93 Intake/Output Intake/Output: Intake & Output 09/25/21 09/26/21 09/27/21 09/28/21 23:59 23:59 23:59 23:59 Intake Total 1999 4360 3140 440 Output Total 999 1925 Balance 1999 3360 1215 440 Meds/Results Medications: Active Medications Generic Name Dose Route Start Last Admin Trade Name Freq PRN Reason Stop Dose Admin Albuterol 2 puff 09/26/21 00:25 Albuterol Sulfat
[2021-09-28] MEDS: PANTOPRAZOLE SODIUM IV 40 MG VIAL IV PUSH ×2 (10:36→20:32)
[2021-09-28] MEDS: ONDANSETRON INJ 4 MG/2 ML VIAL IV PUSH ×2 (10:36→17:42)
[2021-09-28] MEDS: SODIUM CHLORIDE 0.9% IV 1,000 ML 75 ML IV CONT ×2 (10:42→23:04)
[2021-09-28 16:55] LABS: Hematocrit 31.1 % (42.0-52.0); Hemoglobin 10.2 g/dL (14.0-18.0); Mean Corpuscular HGB Conc 32.8 g/dl (32-36); Mean Corpuscular Hemoglobin 30.2 pg (26-34); Mean Platelet Volume 10.8 fl (7.4-10.4); Platelet Count Result 254 k/mm3 (150-375); Red Blood Count 3.38 M/mm3 (4.6-6.20); Red Cell Distribution Width 14.3 % (11.5-14.5)
[2021-09-28 17:55] LABS: Band Neutrophils Percent 10 % (0-6); Basophils Percent Manual 0 % (0-1); Eosinophils Absolute Manual 0.12 K/mm3 (0.02-0.5); Eosinophils Percent Manual 2 % (0-4); Lymphocytes Percent Manual 10 % (18-44); Monocytes Absolute Manual 0.84 K/mm3 (0.1-0.90); Monocytes Percent Manual 14 % (3-9); Neutrophils Absolute Manual 4.44 K/mm3 (1.3-6.7); Neutrophils Percent Manual 64 % (46-73); Total Cells Counted 100
[2021-09-28 17:56] LABS: Platelet Estimate Adequate (Adequate)
[2021-09-28] MEDS: LORazepam (*CRX) 1 MG TABLET PO (20:32)
[2021-09-28] MEDS: ACETAMINOPHEN 325 MG TABLET 650 MG PO (21:02)
[2021-09-29] MEDS: SUCRALFATE 1 GM TABLET PO ×2 (00:36→05:13)
[2021-09-29 05:13] VITALS: BP 120/77; PULSE 103; RESP 20; TEMP 36.3; O2SAT 92
[2021-09-29] MEDS: ONDANSETRON INJ 4 MG/2 ML VIAL IV PUSH ×2 (05:16→12:34)
[2021-09-29] MEDS: HEPARIN SODIUM 5,000 UNITS/ML VIAL 5000 UNITS SUB-Q ×2 (09:31→21:05)
[2021-09-29] MEDS: PANTOPRAZOLE SODIUM IV 40 MG VIAL IV PUSH ×2 (09:31→21:06)
--- NOTE | 2021-09-29 11:26 | PM.IMPN ---
Progress Note: A&P Assessment and Plan (1) Intractable nausea and vomiting: Code(s): R11.2 - Nausea with vomiting, unspecified Status: Acute Assessment and Plan: Consult GI for further recommendations Continue dronabinol and IV protonix and prn zofran Pt is tolerating jello today only ct abdomen Abdomen/Pelvis CT 09/20/21 13:46 IMPRESSION: 1. No acute intra-abdominal/pelvic process. 2. Small pericardial effusion. 3. Wall thickening the distal esophagus suspicious for esophagitis which could be infectious, inflammatory in etiology or due to reflux. 4. Nodular thickening the bilateral adrenal glands, enhancement in the left and lower attenuation in the right which raises concern for metastatic disease. Correlate with any prior outside imaging. 5. Indeterminate 9 mm lytic lesion at the left femoral head also raising suspicion for metastatic disease. Most helpful for determining pole of suspicion would be comparison with any prior outside imaging. (2) Acute hyponatremia: Code(s): E87.1 - Hypo-osmolality and hyponatremia Status: Acute Assessment and Plan: Sodium is 131 continue fluids continue to monitor BMP (3) Metastatic lung cancer (metastasis from lung to other site): Qualifiers: Laterality: unspecified laterality Qualified Code(s): C34.90 - Malignant neoplasm of unspecified part of unspecified bronchus or lung Code(s): C34.90 - Malignant neoplasm of unspecified part of unspecified bronchus or lung Status: Acute Assessment and Plan: Patient is currently undergoing chemotherapy and radiation treatment Follow-up in outpatient setting. (4) Fever: Code(s): R50.9 - Fever, unspecified Status: Resolved Subjective Date/time seen: 09/29/21 11:26 Interval history: 56-year-old male with past medical history significant for lung cancer with metastatic disease undergoing radiation and chemotherapy. Pt having intractable nausea and heart burn. Denies abdominal pain or diarrhea. CT shows esophagitis continue PPI and antiemetics for now. CT abdomen - 1. No acute intra-abdominal/pelvic process. 2. Small pericardial effusion. 3. Wall thickening the distal esophagus suspicious for esophagitis which could be infectious, inflammatory in etiology or due to reflux. 4. Nodular thickening the bilateral adrenal glands, enhancement in the left and lower attenuation in the right which raises concern for metastatic disease. Correlate with any prior outside imaging. 5. Indeterminate 9 mm lytic lesion at the left femoral head also raising suspicion for metastatic disease. Most helpful for determining pole of suspicion would be comparison with any prior outside imaging. 09/29/2021 ongoing nausea and vomiting tolerating jello today, GI consulted today Review of Systems Review of Systems: All systems reviewed & are unremarkable except as noted in HPI and below Exam Const: Orientation/consciousness: oriented to person and Other orientation findings (unwell nauseated ) HENMT: Head: normal to inspection Resp: Effort & Inspection: no respiratory distress Auscultation: no rhonchi and no wheezes Cardio: Rate: regular rate Rhythm: regular rhythm GI: Inspection: normal to inspection Auscultation: normal bowel sounds Neuro: General: oriented to person Objective Data Vital Signs Vital Signs: Vital Signs - 24 hr 09/28/21 15:40 09/28/21 20:00 09/28/21 20:32 Temperature 36.6 C 38.0 C H Pulse Rate 98 123 H 123 H Respiratory Rate 16 20 20 Blood Pressure 117/68 111/64 Pulse Oximetry 97 92 92 09/28/21 21:02 09/28/21 22:02 09/29/21 05:13 Temperature 38.0 C H 37.6 C H 36.3 C L Pulse Rate 103 H Respiratory Rate 20 Blood Pressure 120/77 Pulse Oximetry 92 Intake/Output Intake/Output: Intake & Output 09/26/21 09/27/21 09/28/21 09/29/21 23:59 23:59 23:59 23:59 Intake Total 4360 3140 2590 390 Output Total 1000 1925 800 700 Balance 3360 1215 17
[2021-09-29] MEDS: SODIUM CHLORIDE 0.9% IV 1,000 ML 75 ML IV CONT (12:30)
--- NOTE | 2021-09-29 13:23 | WPDGICN ---
Assessment and Plan Assessment and plan (1) Intractable nausea and vomiting: Code(s): R11.2 - Nausea with vomiting, unspecified Status: Acute Assessment and Plan: wonder if could be multifactorial from chemotherapy that he has been receiving for last few months but mostly from radiation therapy (symptom started after getting XRT) but also noted thickening of esophagus by CT scan will do EGD tomorrow to check if esophagitis, ulcer, etc on iv protonix, antiemetics and carafate will add reglan for now (2) Metastatic lung cancer (metastasis from lung to other site): Qualifiers: Laterality: unspecified laterality Qualified Code(s): C34.90 - Malignant neoplasm of unspecified part of unspecified bronchus or lung Code(s): C34.90 - Malignant neoplasm of unspecified part of unspecified bronchus or lung Status: Acute Assessment and Plan: on treatment at [facility] (3) Abnormal CT scan, esophagus: Code(s): R93.3 - Abnormal findings on diagnostic imaging of other parts of digestive tract Status: Acute Assessment and Plan: will do egd tomorrow (4) Acute hyponatremia: Code(s): E87.1 - Hypo-osmolality and hyponatremia Status: Acute GI Consult Note Consult date/time: 09/29/21 13:23 Reason for consult: nausea and vomiting HPI: Rene De Anda is a 56 year old male with past medical history significant for lung cancer with metastatic disease in brain and other organs, he is on Keytruda and alimta for last few months at [facility], also about 2 weeks ago received radiation to right shoulder, around that time he started with persistent nausea that won't go away but also vomiting after eating. Denies dysphagia but says that unable to keep food down, feeling tired with overall weakness. Sodium 129, admitted to hospital. Denies previous EGD. CT scan a/p reviewed and showed no acute intra-abdominal/pelvic process, wall thickening the distal esophagus suspicious for esophagitis, nodular thickening the bilateral adrenal glands, enhancement in the left and lower attenuation in the right which raises concern for metastatic disease. Started on antiemetics, carafate, iv protonix but still with nausea. Review of Systems Constitutional: Constitutional: Reports fatigue and Reports lethargy Eyes: Eyes: Denies blurry vision ENT: Reports Normal hearing present Cardiovascular: Cardiovascular: Denies chest pain Respiratory: Respiratory: Denies wheezing Gastrointestinal: Gastrointestinal: Reports nausea and Reports vomiting Genitourinary: Genitourinary: Denies dysuria Musculoskeletal: Musculoskeletal: Denies neck pain Integumentary/Breasts: Skin/Breast: Denies dry skin Neurologic: Reports system reviewed and no additional complaints, except as documented Psychiatric: Psychiatric: Reports no additional psychiatric complaints PMF Past Medical History Medical History (Updated 09/29/21 @ 13:29 by Conner Scott MD) Abnormal CT scan, esophagus Hypertension Lung cancer Surgical History Surgical History (Updated 09/25/21 @ 18:18 by Bernie Perrin PA-C) No pertinent past surgical history Family History Family History (Updated 09/25/21 @ 23:07 by Dania Fuentes RN) Sibling Throat cancer Social History Social History (Updated 09/25/21 @ 18:19 by Bernie Perrin PA-C) Years smoked: 40 Smoking status: Former smoker Tobacco type: cigarettes Smoking end date: 12/08/20 Alcohol intake: never Substance use: never Substance use type: does not use Spiritual care concerns: No Meds Home Medications and Allergies Home Medications Medication Instructions Recorded Confirmed Type albuterol sulfate 2 puff INHALATION Q4H PRN 09/25/21 09/25/21 History dronabinol 2.5 mg PO BID 09/25/21 09/25/21 History folic acid 1 mg PO DAILY 09/25/21 09/25/21 History lactulose [Enulose] 15 ml PO TID PRN 09/25/21 09/25/21 History lorazepam
[2021-09-29 13:55] VITALS: BP 118/79; PULSE 91; RESP 24; TEMP 36.6; O2SAT 91
[2021-09-29] MEDS: CALCIUM CARBONATE (TUMS) 500 MG (200 MG ELEMENTAL) 400 MG PO (15:23)
[2021-09-29] MEDS: METOCLOPRAMIDE HCL INJ 10 MG/2 ML VIAL 5 MG IV PUSH (17:27)
[2021-09-29] MEDS: LORazepam (*CRX) 1 MG TABLET PO (21:04)
[2021-09-29 22:00] VITALS: BP 110/69; PULSE 94; RESP 18; TEMP 36.7; O2SAT 96
[2021-09-30] VITALS (10 sets, daily range): BP systolic 86–122; BP diastolic 55–82; PULSE 85–118; RESP 14–30; TEMP 36.6–37.6; O2SAT 84–100
[2021-09-30] MEDS: METOCLOPRAMIDE HCL INJ 10 MG/2 ML VIAL 5 MG IV PUSH ×4 (00:14→17:00)
[2021-09-30] MEDS: SODIUM CHLORIDE 0.9% IV 1,000 ML 75 ML IV CONT (00:16)
--- NOTE | 2021-09-30 06:31 | WPDANESEPPF ---
Anes - Initial Pre Proc Eval Procedure: Operation Date: 09/30/21 12:30 Proposed Procedures p Esophagogastroduodenoscopy - Conner Scott MD Date/Time: 09/30/21 06:31 Surgeon: Sourav Nowak MD Pre Op Diagnosis: Hyponatremia,Intractable Nausea/vomiting,Esophagit Patient Data Age: 56 Gender: M Height: 1.91 m Weight: 92.2 kg Last Vital Signs Temp 36.7 C 09/29/21 22:00 Pulse 94 09/29/21 22:00 Resp 18 09/29/21 22:00 BP 110/69 09/29/21 22:00 Pulse Ox 96 09/29/21 22:00 Allergies Allergy/AdvReac Type Severity Reaction Status Date / Time codeine AdvReac Other Verified 09/30/21 10:55 Home Medications Medication Instructions Recorded Confirmed Type albuterol sulfate 2 puff INHALATION Q4H PRN 09/25/21 09/25/21 History dronabinol 2.5 mg PO BID 09/25/21 09/25/21 History folic acid 1 mg PO DAILY 09/25/21 09/25/21 History lactulose [Enulose] 15 ml PO TID PRN 09/25/21 09/25/21 History lorazepam 1 mg PO HS 09/25/21 09/25/21 History metformin 1,000 mg PO BID 09/25/21 09/25/21 History metoclopramide HCl 5 mg PO TID 09/25/21 09/25/21 History ondansetron 4 mg PO Q8H PRN 09/25/21 09/25/21 History ondansetron HCl 8 mg PO Q4H PRN 09/25/21 09/25/21 History pantoprazole 40 mg PO HS 09/25/21 09/25/21 History Patient hx anesthesia problems: none Family hx anesthesia problems: none Results Review: All pre-operative results and documents have been reviewed as part of the pre-operative evaluation. [facility] Past Medical History Medical History (Updated 09/30/21 @ 06:32 by Brown Mena DO) Abnormal CT scan, esophagus Brain tumor Hypertension Lung cancer Metastatic lung cancer (metastasis from lung to other site) Surgical History Surgical History (Updated 09/25/21 @ 18:18 by Bernie Perrin PA-C) No pertinent past surgical history Family History Family History (Updated 09/25/21 @ 23:07 by Dania Fuentes RN) Sibling Throat cancer Social History Social History (Updated 09/25/21 @ 18:19 by Bernie Perrin PA-C) Years smoked: 40 Smoking status: Former smoker Tobacco type: cigarettes Smoking end date: 12/08/20 Alcohol intake: never Substance use: never Substance use type: does not use Spiritual care concerns: No Anes - Eval Final PreProcedure Day of Procedure 09/30/21 06:31 Patient weight: overweight Heart: regular rate and rhythm Lungs: clear to auscultation and normal air movement Airway: Mallampati scale class II Neurological: alert and oriented Last oral intake: >/= 8 hours ASA classification: IV Emergent: no Anesthetic plan: proceed Anesthesia type and monitoring: general GIVS and standard monitoring Results Review: All pre-operative results and documents have been reviewed as part of the pre-operative evaluation. Informed Consent: The patient's anesthetic plan and its attendant risks and benefits were discussed with the patient/family/POA. Questions were solicited and answers provided to the satisfaction of the patient/family/POA.
[2021-09-30] MEDS: PANTOPRAZOLE SODIUM IV 40 MG VIAL IV PUSH ×2 (08:26→20:32)
[2021-09-30 09:23] LABS: Potassium 3.7 mmol/L (3.4-5.0)
[2021-09-30 09:26] LABS: Anion Gap 8 mmol/L (8-16); Blood Urea Nitrogen 7 mg/dL (9-20); Calcium 8.4 mg/dL (8.4-10.2); Carbon Dioxide 23 mmol/L (22-30); Chloride 99 mmol/L (98-107); Estimated CRCL calculation 106 ml/min; Estimated Glomerular Filt Rate > 60; Glucose 100 mg/dL (65-110); Sodium 130 mmol/L (137-145)
--- NOTE | 2021-09-30 10:46 | PC.NURSE ---
Pt to GI lab per wheelchair 09/30/21 0911.
[2021-09-30] MEDS: LACTATED RINGERS 1,000 ML 150 ML IV CONT (10:52)
--- NOTE | 2021-09-30 11:15 | PM.IMPN ---
Progress Note: A&P Assessment and Plan (1) Intractable nausea and vomiting: Code(s): R11.2 - Nausea with vomiting, unspecified Status: Acute Assessment and Plan: Consult GI for further recommendations Continue dronabinol and IV protonix and prn zofran Pt is going for EGD today ct abdomen Abdomen/Pelvis CT 09/20/21 13:46 IMPRESSION: 1. No acute intra-abdominal/pelvic process. 2. Small pericardial effusion. 3. Wall thickening the distal esophagus suspicious for esophagitis which could be infectious, inflammatory in etiology or due to reflux. 4. Nodular thickening the bilateral adrenal glands, enhancement in the left and lower attenuation in the right which raises concern for metastatic disease. Correlate with any prior outside imaging. 5. Indeterminate 9 mm lytic lesion at the left femoral head also raising suspicion for metastatic disease. Most helpful for determining pole of suspicion would be comparison with any prior outside imaging. (2) Acute hyponatremia: Code(s): E87.1 - Hypo-osmolality and hyponatremia Status: Acute Assessment and Plan: Sodium is 130 continue fluids continue to monitor BMP (3) Metastatic lung cancer (metastasis from lung to other site): Qualifiers: Laterality: unspecified laterality Qualified Code(s): C34.90 - Malignant neoplasm of unspecified part of unspecified bronchus or lung Code(s): C34.90 - Malignant neoplasm of unspecified part of unspecified bronchus or lung Status: Acute Assessment and Plan: Patient is currently undergoing chemotherapy and radiation treatment Follow-up in outpatient setting. (4) Fever: Code(s): R50.9 - Fever, unspecified Status: Resolved Additional Plan Subjective Date/time seen: 09/30/21 11:15 Interval history: Interval history: 56-year-old male with past medical history significant for lung cancer with metastatic disease undergoing radiation and chemotherapy. Pt having intractable nausea and heart burn. Denies abdominal pain or diarrhea. CT shows esophagitis continue PPI and antiemetics for now. CT abdomen - 1. No acute intra-abdominal/pelvic process. 2. Small pericardial effusion. 3. Wall thickening the distal esophagus suspicious for esophagitis which could be infectious, inflammatory in etiology or due to reflux. 4. Nodular thickening the bilateral adrenal glands, enhancement in the left and lower attenuation in the right which raises concern for metastatic disease. Correlate with any prior outside imaging. 5. Indeterminate 9 mm lytic lesion at the left femoral head also raising suspicion for metastatic disease. Most helpful for determining pole of suspicion would be comparison with any prior outside imaging. 09/29/2021 ongoing nausea and vomiting tolerating, cem today, GI consulted today 09/30/2021 pt is going fo EGD today for intractable nausea and vomiting Review of Systems Review of Systems: All systems reviewed & are unremarkable except as noted in HPI and below Exam Const: Orientation/consciousness: oriented to person and Other orientation findings (unwell nauseated ) HENMT: Head: normal to inspection Resp: Effort & Inspection: no respiratory distress Auscultation: no rhonchi and no wheezes Cardio: Rate: regular rate Rhythm: regular rhythm GI: Inspection: normal to inspection Auscultation: normal bowel sounds Neuro: General: oriented to person Objective Data Vital Signs Vital Signs: Vital Signs - 24 hr 09/29/21 13:55 09/29/21 22:00 09/30/21 06:00 Temperature 36.6 C 36.7 C 36.8 C Pulse Rate 91 94 104 H Respiratory Rate 24 H 18 20 Blood Pressure 118/79 110/69 114/72 Pulse Oximetry 91 96 98 09/30/21 10:56 Temperature 36.6 C Pulse Rate 108 H Respiratory Rate 20 Blood Pressure 122/82 Pulse Oximetry 95 Intake/Output Intake/Output: Intake & Output 09/27/21 09/28/21 09/29/21 09/30/21 23:59 23:59 23:59 23:59 Intake Total 3140 7140 1630
[2021-09-30] MEDS: BENZOCAINE (*SP) 60 ML SPRAY CAN (HURRICAINE) 1 SPRAY MUCOUS MEM (12:00)
[2021-09-30] MEDS: SUCRALFATE 1 GM TABLET PO ×3 (12:54→20:32)
[2021-09-30] MEDS: FOLIC ACID 1 MG TABLET PO (12:54)
[2021-09-30] MEDS: HEPARIN SODIUM 5,000 UNITS/ML VIAL 5000 UNITS SUB-Q ×2 (12:55→20:32)
[2021-09-30] MEDS: ONDANSETRON INJ 4 MG/2 ML VIAL IV PUSH (17:37)
[2021-09-30] MEDS: LORazepam (*CRX) 1 MG TABLET PO (20:32)
--- NOTE | 2021-09-30 22:25 | ECG_ITS ---
Measurements Intervals [place] Rate: 108 P: 62 AL: 145 QRS: 57 QRSD: 83 T: 67 QT: 307 QTc: 412 Interpretive Statements SINUS TACHYCARDIA OTHERWISE NORMAL ECG NO PREVIOUS ECG AVAILABLE FOR COMPARISON Electronically Signed On 10-01-2021 16:16:29 CDT by Allen Richards M.D.
[2021-10-01] MEDS: METOCLOPRAMIDE HCL INJ 10 MG/2 ML VIAL 5 MG IV PUSH ×3 (00:32→12:36)
[2021-10-01 01:18] LABS: SARS-CoV-2 RNA PCR Negative
[2021-10-01 06:00] VITALS: BP 104/70; PULSE 110; RESP 16; TEMP 37.1; O2SAT 90
[2021-10-01 06:09] LABS: Anion Gap 5 mmol/L (8-16); Blood Urea Nitrogen 8 mg/dL (9-20); Calcium 8.6 mg/dL (8.4-10.2); Carbon Dioxide 29 mmol/L (22-30); Chloride 98 mmol/L (98-107); Estimated CRCL calculation 86 ml/min; Estimated Glomerular Filt Rate > 60; Glucose 119 mg/dL (65-110); Potassium 3.9 mmol/L (3.4-5.0); Sodium 132 mmol/L (137-145)
[2021-10-01 06:25] VITALS: O2SAT 94
[2021-10-01] MEDS: TRIMETHOBENZAMIDE HCL 200 MG/2 ML VIAL IM (09:39)
[2021-10-01] MEDS: PANTOPRAZOLE SODIUM IV 40 MG VIAL IV PUSH ×2 (09:40→19:50)
[2021-10-01] MEDS: SUCRALFATE 1 GM TABLET PO (09:40)
[2021-10-01] MEDS: SODIUM CHLORIDE 0.9% IV 1,000 ML 100 ML IV CONT ×2 (09:41→19:49)
[2021-10-01] MEDS: FOLIC ACID 1 MG TABLET PO (09:41)
[2021-10-01] MEDS: HEPARIN SODIUM 5,000 UNITS/ML VIAL 5000 UNITS SUB-Q ×2 (09:41→19:50)
--- NOTE | 2021-10-01 11:27 | PM.IMPN ---
Progress Note: A&P Assessment and Plan (1) Intractable nausea and vomiting: Code(s): R11.2 - Nausea with vomiting, unspecified Status: Acute Assessment and Plan: - Pt's current medication regimen for N/V is not improving his symptoms, he is actively vomiting upon my entry into the room. - Add Tigan 200 mg IM Q6 hrs - Restart IVF of 100 ml/hr for hydration - Continue Reglan for EGD findings of Gastric Retention. - Recheck labs in AM and monitor VS. (2) Acute hyponatremia: Code(s): E87.1 - Hypo-osmolality and hyponatremia Status: Acute Assessment and Plan: - Sodium is 132 today, continue fluids continue to monitor BMP (3) Metastatic lung cancer (metastasis from lung to other site): Qualifiers: Laterality: unspecified laterality Qualified Code(s): C34.90 - Malignant neoplasm of unspecified part of unspecified bronchus or lung Code(s): C34.90 - Malignant neoplasm of unspecified part of unspecified bronchus or lung Status: Acute Assessment and Plan: - Patient is currently undergoing chemotherapy and radiation treatment - Follow-up in outpatient setting. - CT with results suggesting metastasis to multiple areas including potential spread to the adrenal glands, and to the left femoral head. - Suggest PET Scan as outpatient. (4) Fever: Qualifiers: Fever type: unspecified Qualified Code(s): R50.9 - Fever, unspecified Code(s): R50.9 - Fever, unspecified Status: Resolved Additional Plan Time Spent With Patient Time with patient: 15 - 25 minutes Subjective Date/time seen: 10/01/21 0800 This pt. was examined at the bedside today in interval assessment. He appears ill upon my entry into the room. He is complaining of having persistent N/V today despite using the anti-emetics that are ordered. I advised that we will attempt another medication today and his IVF are restarted at this time for hydration. He has no other complaints or concerns today. Review of Systems Review of Systems: A 12 point ROS was performed and is otherwise negative with exception of what is noted in HPI. All systems reviewed & are unremarkable except as noted in HPI and below Exam Const: General: comfortable, no acute distress, well developed, alert, awake, in distress, ill appearing, tired appearing and uncomfortable Nutritional Appearance: thin Orientation/consciousness: oriented to person, patient oriented x3 and Other orientation findings (unwell nauseated ) HENMT: Head: normal to inspection, normocephalic and atraumatic Ears: hearing grossly normal bilaterally General nose exam: Normal external nose present Face and sinus: normal facial exam Mouth: Yes moist mucous membranes and Yes dry mucous membranes Eyes: General: appearance normal, both eyes and all related structures Alignment and Position: alignment normal Sclera: sclerae normal Pupils: Equal, round and reactive pupils present EOM: EOMs intact bilaterally Neck: Neck: normal visual inspection, full ROM, no lymphadenopathy, supple and no JVD Thyroid: thyroid normal Lymphatic: no lymphadenopathy noted Resp: Effort & Inspection: normal respiratory effort, able to speak in complete sentences and no respiratory distress Auscultation: clear to auscultation bilaterally, no rhonchi, no wheezes and diminished lung sounds Cardio: Jugular venous distension: no JVD Rate: regular rate and tachycardic Rhythm: regular rhythm Heart sounds: S1 normal heart sound present and S2 normal heart sound present GI: Inspection: normal to inspection and distended GI Palp: Yes Soft to palpation and Yes Tenderness to palpation present (GI) Auscultation: normal bowel sounds : General: Yes deferred Skin: General skin exam: normal color, no rashes or lesions noted and pallor Rashes: no rashes Wounds: no wounds Other: Pt. has a ballard appearance to the skintone. Neuro: General: oriented to person, patient oriented x3,
[2021-10-01 13:54] VITALS: BP 112/58; PULSE 110; RESP 16; TEMP 36.4; O2SAT 90
--- NOTE | 2021-10-01 15:04 | WPDANESPN ---
Anes - Prog Note Post-Op Date/Time: 10/01/21 15:04 Cardiovascular status: normal Respiratory status: normal Airway patency: baseline Mental status: baseline Post-Op hydration status: normal Vital Signs: Last Vital Signs Temp 36.4 C 10/01/21 13:54 Pulse 110 H 10/01/21 13:54 Resp 16 10/01/21 13:54 BP 112/58 L 10/01/21 13:54 Pulse Ox 90 10/01/21 13:54 Pain Score (VAS): 2 I/O: Intake & Output 09/30/21 10/01/21 10/01/21 23:59 07:59 15:59 Intake Total 50 450 190 Output Total 300 300 Balance -250 150 190 Laboratory Tests 09/28/21 16:30 10/01/21 05:20 10/01/21 10/01/21 10/01/21 00:30 05:20 05:20 Sodium 132 L Potassium 3.9 Chloride 98 Carbon Dioxide 29 Anion Gap 5 L BUN 8 L Creatinine 1.00 Estim Creat Clear Calc 86 Estimated GFR > 60 Glucose 119 H Calcium 8.6 Anti-Hu IgG Ab (IB) Pending SARS-CoV-2 RNA (RT-PCR) Negative Post-procedural complaints: none Patient Feedback: Patient satisfied with anesthetic care.
--- NOTE | 2021-10-01 15:45 | WPDGIPROGNO ---
Progress Note: A&P Assessment and Plan (1) Intractable nausea and vomiting: Code(s): R11.2 - Nausea with vomiting, unspecified Status: Acute Assessment and Plan: could be from underlying metastatic lung cancer, recent chemotherapy or even gastroparesis since found retained food in stomach (can be paraneoplastic syndrome in lung cancer)- ordered anti-hu order gastric emptying study and will increase dose of reglan and continue with zofran encourage to eat and drink ensure (he is keeping down less than 50% of food), still symptomatic (2) Metastatic lung cancer (metastasis from lung to other site): Qualifiers: Laterality: unspecified laterality Qualified Code(s): C34.90 - Malignant neoplasm of unspecified part of unspecified bronchus or lung Code(s): C34.90 - Malignant neoplasm of unspecified part of unspecified bronchus or lung Status: Acute Assessment and Plan: he is seeing oncology and is on treatment as outpatient (3) Acute hyponatremia: Code(s): E87.1 - Hypo-osmolality and hyponatremia Status: Acute Assessment and Plan: na 132, stable (4) Hypertension: Code(s): I10 - Essential (primary) hypertension Status: Acute Subjective Date/time seen: 10/01/21 15:45 Interval history: egd yesterday with retained food in stomach and mild gastritis, no major findings otherwise. Still with nausea- has not changed Review of Systems Review of Systems: All systems reviewed & are unremarkable except as noted in HPI and below Exam Const: General: comfortable and no acute distress HENMT: General nose exam: Normal nares present Eyes: General: appearance normal, both eyes and all related structures Neck: Neck: no JVD Resp: Auscultation: clear to auscultation bilaterally Cardio: Rate: regular rate Rhythm: regular rhythm GI: Inspection: non-distended GI Palp: Yes Soft to palpation and No Guarding due to palpation present (GI) Auscultation: normal bowel sounds Skin: General skin exam: normal color Neuro: Speech: normal speech Motor exam (neuro): Normal motor muscle tone present throughout Extrem: General: normal to inspection Psych: Mental Status: mental status grossly normal Objective Data Vital Signs Vital Signs: Vital Signs - 24 hr 09/30/21 22:10 09/30/21 22:15 09/30/21 22:22 Temperature 99.6 F Pulse Rate 118 H 113 H Respiratory Rate 20 20 Blood Pressure 109/66 Pulse Oximetry 84 L 92 94 10/01/21 06:00 10/01/21 06:25 10/01/21 13:54 Temperature 98.7 F 97.6 F Pulse Rate 110 H 110 H Respiratory Rate 16 16 Blood Pressure 104/70 112/58 L Pulse Oximetry 90 94 90 Intake/Output Intake/Output: Intake & Output 09/28/21 09/29/21 09/30/21 10/01/21 23:59 23:59 23:59 23:59 Intake Total 2590 1630 1550 640 Output Total 800 1075 1400 300 Balance 1790 555 150 340 Meds/Results Medications: Active Medications Generic Name Dose Route Start Last Admin Trade Name Freq PRN Reason Stop Dose Admin Acetaminophen 650 mg 09/28/21 20:50 09/28/21 21:02 Acetaminophen 325 Mg Tablet PO 650 mg Q6H PRN Administration Mild Pain (1-3) or Fever Albuterol 2 puff 09/26/21 00:25 Albuterol Sulfate (*Sp) Aerosol 1 Puff INHALATION Q4HRT PRN Shortness Of Breath Calcium Carbonate 400 mg 09/28/21 05:10 09/29/21 15:23 Calcium Carbonate (Tums) 500 Mg (200 Mg Elemental) PO 400 mg Q4H PRN Administration Indigestion Dronabinol 0 mg 09/29/21 21:00 10/01/21 09:40 Dronabinol (*Crx) 2.5 Mg Capsule PO 2.5 mg Q12HR CLARKE Administration Folic Acid 1 mg 09/26/21 09:00 10/01/21 09:41 Folic Acid 1 Mg Tablet PO 1 mg DAILY CLARKE Administration Heparin Sodium (Porcine) 5,000 units 09/27/21 21:00 10/01/21 09:41 Heparin Sodium 5,000 Units/Ml Vial SUB-Q 5,000 units Q12HR CLARKE Administration Sodium Chloride 1,000 mls @ 100 mls/hr 10/01/21 09:15 10/01/21 09:41 Normal Saline Iv
[2021-10-01] MEDS: METOCLOPRAMIDE HCL INJ 10 MG/2 ML VIAL IV PUSH (17:24)
[2021-10-01] MEDS: LORazepam (*CRX) 1 MG TABLET PO (19:50)
[2021-10-01 20:15] VITALS: BP 112/75; PULSE 97; RESP 18; O2SAT 93
[2021-10-01 20:17] VITALS: TEMP 37.6
[2021-10-01] MEDS: ACETAMINOPHEN 325 MG TABLET 650 MG PO (20:20)
[2021-10-02] MEDS: METOCLOPRAMIDE HCL INJ 10 MG/2 ML VIAL IV PUSH ×4 (00:35→17:25)
[2021-10-02 05:10] VITALS: BP 114/79; PULSE 106; RESP 16; TEMP 36.8; O2SAT 94
[2021-10-02] MEDS: SODIUM CHLORIDE 0.9% IV 1,000 ML 100 ML IV CONT ×2 (05:33→18:39)
[2021-10-02 07:34] LABS: Basophils Percent Auto 0.8 % (0.2-1.2); Eosinophils Absolute Auto 0.1 K/mm3 (0-0.3); Eosinophils Percent Auto 2.4 % (0-4.4); Hematocrit 31.8 % (42.0-52.0); Hemoglobin 10.4 g/dL (14.0-18.0); Immature Granulocyte Absolute 0.05 K/mm3 (0.00-0.031); Lymphocytes Absolute Auto 0.69 K/mm3 (0.9-3.2); Mean Corpuscular HGB Conc 32.7 g/dl (32-36); Mean Corpuscular Hemoglobin 29.9 pg (26-34); Mean Corpuscular Volume 91.4 fl (80-100); Mean Platelet Volume 10.6 fl (7.4-10.4); Monocytes Absolute Auto 1.6 K/mm3 (0.1-0.6); Monocytes Percent Auto 32.1 % (2.6-8.5); Neutrophils Absolute Auto 2.4 K/mm3 (1.3-6.7); Neutrophils Percent Auto 49.7 % (45.5-73.1); Platelet Count Result 295 k/mm3 (150-375); Red Blood Count 3.48 M/mm3 (4.6-6.20); Red Cell Distribution Width 14.7 % (11.5-14.5); White Blood Count 4.9 K/mm3 (4.5-10.0)
[2021-10-02 07:46] LABS: Alanine Aminotransferase 37 U/L (4-50); Albumin Level 3.3 g/dL (3.5-5.1); Alkaline Phosphatase 61 U/L (38-126); Anion Gap 7 mmol/L (8-16); Aspartate Amino Transferase 58 U/L (17-59); Bilirubin,Total 0.5 mg/dL (0.2-1.3); Blood Urea Nitrogen 8 mg/dL (9-20); Calcium 8.4 mg/dL (8.4-10.2); Carbon Dioxide 26 mmol/L (22-30); Chloride 101 mmol/L (98-107); Estimated CRCL calculation 95 ml/min; Estimated Glomerular Filt Rate > 60; Glucose 119 mg/dL (65-110); Magnesium 1.8 mg/dL (1.6-2.3); Sodium 134 mmol/L (137-145)
[2021-10-02] MEDS: SUCRALFATE 1 GM TABLET PO ×3 (09:08→16:37)
[2021-10-02] MEDS: PANTOPRAZOLE SODIUM IV 40 MG VIAL IV PUSH ×2 (09:08→21:18)
[2021-10-02] MEDS: HEPARIN SODIUM 5,000 UNITS/ML VIAL 5000 UNITS SUB-Q ×2 (09:08→21:18)
[2021-10-02] MEDS: FOLIC ACID 1 MG TABLET PO (09:08)
--- NOTE | 2021-10-02 12:27 | WPDGIPROGNO ---
Progress Note: A&P Additional Plan DEREK Garcia for Tyler 02 Oct 2021 Nausea improved. Minimal emesis. Lokesh some po. No abdominal pain. VSS soft/NT Hct 32. LFT's normal A/P Widely metastatic lung cancer with nausea and emesis: - Continue with medical treatment for nausea and vomiting with meds including Marinol and Reglan - Seems to be improving - Continue observation - Further recommendations per Oncology and [facility], [facility] [phone] Subjective Date/time seen: 10/02/21 12:27 Objective Data Vital Signs Vital Signs: Vital Signs - 24 hr 10/01/21 13:54 10/01/21 20:15 10/01/21 20:17 Temperature 36.4 C 37.6 C H Pulse Rate 110 H 97 Respiratory Rate 16 18 Blood Pressure 112/58 L 112/75 Pulse Oximetry 90 93 10/02/21 05:10 Temperature 36.8 C Pulse Rate 106 H Respiratory Rate 16 Blood Pressure 114/79 Pulse Oximetry 94 Intake/Output Intake/Output: Intake & Output 09/29/21 09/30/21 10/01/21 10/02/21 23:59 23:59 23:59 23:59 Intake Total 1630 1550 2040 1440 Output Total 1075 1400 300 550 Balance 521 244 2011 890 Meds/Results Medications: Active Medications Generic Name Dose Route Start Last Admin Trade Name Freq PRN Reason Stop Dose Admin Acetaminophen 650 mg 09/28/21 20:50 10/01/21 20:20 Acetaminophen 325 Mg Tablet PO 650 mg Q6H PRN Administration Mild Pain (1-3) or Fever Albuterol 2 puff 09/26/21 00:25 Albuterol Sulfate (*Sp) Aerosol 1 Puff INHALATION Q4HRT PRN Shortness Of Breath Calcium Carbonate 400 mg 09/28/21 05:10 09/29/21 15:23 Calcium Carbonate (Tums) 500 Mg (200 Mg Elemental) PO 400 mg Q4H PRN Administration Indigestion Dronabinol 2.5 mg 10/02/21 06:00 10/02/21 11:57 Dronabinol (*Crx) 2.5 Mg Capsule PO Not Given 0600,1100 CLARKE Folic Acid 1 mg 09/26/21 09:00 10/02/21 09:08 Folic Acid 1 Mg Tablet PO 1 mg DAILY CLARKE Administration Heparin Sodium (Porcine) 5,000 units 09/27/21 21:00 10/02/21 09:08 Heparin Sodium 5,000 Units/Ml Vial SUB-Q 5,000 units Q12HR CLARKE Administration Sodium Chloride 1,000 mls @ 100 mls/hr 10/01/21 09:15 10/02/21 05:33 Normal Saline Iv IV CONT 100 mls/hr .Q10H CLARKE Administration Lactulose 10 gm 09/26/21 00:25 Lactulose 20 Gm/30 Ml Udc PO TID PRN Constipation Lorazepam 1 mg 09/26/21 21:00 10/01/21 19:50 Lorazepam (*Crx) 1 Mg Tablet PO 1 mg HS CLARKE Administration Metoclopramide HCl 10 mg 10/01/21 18:00 10/02/21 11:53 Metoclopramide Hcl Inj 10 Mg/2 Ml Vial IV PUSH 10 mg Q6HR CLARKE Administration Ondansetron HCl 4 mg 09/25/21 21:08 09/30/21 17:37 Ondansetron Inj 4 Mg/2 Ml Vial IV PUSH 4 mg Q4H PRN Administration Nausea Pantoprazole Sodium 40 mg 09/26/21 09:00 10/02/21 09:08 Pantoprazole Sodium Iv 40 Mg Vial IV PUSH 40 mg Q12HR CLARKE Administration Sucralfate 1 gm 09/26/21 01:00 10/02/21 12:04 Sucralfate 1 Gm Tablet PO 1 gm Q4HR CLARKE Administration Trimethobenzamide HCl 200 mg 10/01/21 13:00 Trimethobenzamide Hcl 200 Mg/2 Ml Vial IM Q6H PRN Nausea And Vomiting Radiology Results: ITS Impressions Chest X-Ray 09/25/21 19:25 IMPRESSION: Bullous emphysema and chronic interstitial changes No pulmonary infiltrate or consolidation is evident Chest CTA 09/30/21 23:26 IMPRESSION: 1. Left upper lobe spiculated nodule most consistent with primary lung cancer. 2. Infiltrative appearing left hilar and aortopulmonary window soft tissue. 3. Right hilar lymphadenopathy. 4. Rather diffuse but basilar predominant groundglass airspace disease, could be edema but nonspecific with differential considerations above. 5. Bilateral adrenal gland nodule, indeterminate. 6. Recommend PET/CT. Labs Labs: Laboratory Results - last 24 hr 10/02/21 10/02/21 07:13 07:13 WBC 4.9 RBC 3.48 L Hgb 10.4 L Hct 31.8 L MCV 91.4 MCH 29.9 MCHC 32.7 R
[2021-10-02 13:10] VITALS: BP 107/73; PULSE 96; RESP 12; TEMP 36.5; O2SAT 96
--- NOTE | 2021-10-02 13:27 | PM.IMPN ---
Progress Note: A&P Assessment and Plan (1) Intractable nausea and vomiting: Code(s): R11.2 - Nausea with vomiting, unspecified Status: Acute Assessment and Plan: - Pt's current medication regimen for N/V is not improving his symptoms, he is actively vomiting upon my entry into the room. - Add Tigan 200 mg IM Q6 hrs - Restart IVF of 100 ml/hr for hydration - Continue Reglan for EGD findings of Gastric Retention. - Recheck labs in AM and monitor VS. - Pt. had some improvement with Tigan and was able to control nausea better and he was able to eat jello and drink his ensure without difficulty. We will re-evaluate in the AM. GI is wanting to do gastric emptying study as outpatient. (2) Acute hyponatremia: Code(s): E87.1 - Hypo-osmolality and hyponatremia Status: Acute Assessment and Plan: - Sodium is 134 today, continue fluids continue to monitor BMP (3) Metastatic lung cancer (metastasis from lung to other site): Qualifiers: Laterality: unspecified laterality Qualified Code(s): C34.90 - Malignant neoplasm of unspecified part of unspecified bronchus or lung Code(s): C34.90 - Malignant neoplasm of unspecified part of unspecified bronchus or lung Status: Acute Assessment and Plan: - Patient is currently undergoing chemotherapy and radiation treatment - Follow-up in outpatient setting. - CT with results suggesting metastasis to multiple areas including potential spread to the adrenal glands, and to the left femoral head. - Suggest PET Scan as outpatient. - At discharge will refer patient back to [facility] for further Oncological care and evaluation. He states he is supposed to have Chemo and radiation this next week. (4) Fever: Qualifiers: Fever type: unspecified Qualified Code(s): R50.9 - Fever, unspecified Code(s): R50.9 - Fever, unspecified Status: Resolved Additional Plan Time Spent With Patient Time with patient: 15 - 25 minutes Subjective Date/time seen: 10/02/21 0900 This very pleasant patient was examined today and appears to have some degree of improvement overnight. He still endorses some nausea, but it is better than what it was and he reportedly was able to keep down an ensure and some jello. He has no complaints of pain or of any other acute distress. I encouraged him to continue eating as much as he can. He sees Oncology at [facility] and states he should be due to have his next Chemo and radiation this coming week. GI has consulted and has recommended NM Gastric emptying study as an outpatient. We will re-evaluate him in the morning. Review of Systems Review of Systems: A full 12 point ROS was performed and is otherwise unremarkable except for what is documented in HPI. All systems reviewed & are unremarkable except as noted in HPI and below Exam Narrative: Patient is laying in gurney Const: General: comfortable, no acute distress, well developed, alert, awake, ill appearing and tired appearing Nutritional Appearance: thin Orientation/consciousness: oriented to person, patient oriented x3 and Other orientation findings (unwell nauseated ) HENMT: Head: normal to inspection, normocephalic and atraumatic Ears: hearing grossly normal bilaterally General nose exam: Normal external nose present Face and sinus: normal facial exam Mouth: Yes moist mucous membranes Eyes: Alignment and Position: alignment normal Sclera: sclerae normal Neck: Neck: normal visual inspection, full ROM, no lymphadenopathy, supple and no JVD Thyroid: thyroid normal Lymphatic: no lymphadenopathy noted Resp: Effort & Inspection: normal respiratory effort, able to speak in complete sentences and no respiratory distress Auscultation: clear to auscultation bilaterally, no rhonchi, no wheezes and diminished lung sounds Cardio: Jugular venous distension: no JVD Rate: regular rate Rhythm: regular rhythm Heart sounds: S1 normal heart sound present and S2
[2021-10-02] MEDS: ONDANSETRON INJ 4 MG/2 ML VIAL IV PUSH ×2 (15:01→19:20)
[2021-10-02 20:40] VITALS: BP 124/75; PULSE 97; RESP 18; TEMP 36.9; O2SAT 95
[2021-10-02] MEDS: ACETAMINOPHEN 325 MG TABLET 650 MG PO (21:17)
[2021-10-02] MEDS: LORazepam (*CRX) 1 MG TABLET PO (21:18)
[2021-10-03] MEDS: ACETAMINOPHEN 325 MG TABLET 650 MG PO ×2 (02:55→21:52)
[2021-10-03] MEDS: SODIUM CHLORIDE 0.9% IV 1,000 ML 100 ML IV CONT ×2 (02:56→12:17)
[2021-10-03 05:35] VITALS: BP 119/70; PULSE 99; RESP 16; TEMP 36.5; O2SAT 94
[2021-10-03] MEDS: METOCLOPRAMIDE HCL INJ 10 MG/2 ML VIAL IV PUSH ×4 (05:45→17:33)
[2021-10-03] MEDS: SUCRALFATE 1 GM TABLET PO ×4 (05:45→17:33)
[2021-10-03] MEDS: PANTOPRAZOLE SODIUM IV 40 MG VIAL IV PUSH ×2 (08:06→22:06)
[2021-10-03] MEDS: HEPARIN SODIUM 5,000 UNITS/ML VIAL 5000 UNITS SUB-Q ×2 (08:06→22:06)
[2021-10-03] MEDS: FOLIC ACID 1 MG TABLET PO (08:07)
[2021-10-03] MEDS: LORazepam (*CRX) 0.5 MG TABLET PO (11:14)
--- NOTE | 2021-10-03 12:16 | WPDGIPROGNO ---
Progress Note: A&P Additional Plan DEREK Garcia for Tyler 03 Oct 2021 Nausea improved. No emesis. Lokesh some po. No abdominal pain. VSS soft/NT No labs today A/P Widely metastatic lung cancer with nausea and emesis: - Continue with medical treatment for nausea and vomiting with meds including Marinol and Reglan - Seems to be improving - Continue observation - Further recommendations per Oncology and [facility], ABG [phone] Subjective Date/time seen: 10/03/21 12:16 Objective Data Vital Signs Vital Signs: Vital Signs - 24 hr 10/02/21 13:10 10/02/21 20:40 10/03/21 05:35 Temperature 36.5 C 36.9 C 36.5 C Pulse Rate 96 97 99 Respiratory Rate 12 18 16 Blood Pressure 107/73 124/75 119/70 Pulse Oximetry 96 95 94 Intake/Output Intake/Output: Intake & Output 09/30/21 10/01/21 10/02/21 10/03/21 23:59 23:59 23:59 23:59 Intake Total 1550 2040 2640 1710 Output Total 2613 737 8131 1200 Balance 150 1740 1390 510 Meds/Results Medications: Active Medications Generic Name Dose Route Start Last Admin Trade Name Freq PRN Reason Stop Dose Admin Acetaminophen 650 mg 09/28/21 20:50 10/03/21 02:55 Acetaminophen 325 Mg Tablet PO 650 mg Q6H PRN Administration Mild Pain (1-3) or Fever Albuterol 2 puff 09/26/21 00:25 Albuterol Sulfate (*Sp) Aerosol 1 Puff INHALATION Q4HRT PRN Shortness Of Breath Calcium Carbonate 400 mg 09/28/21 05:10 09/29/21 15:23 Calcium Carbonate (Tums) 500 Mg (200 Mg Elemental) PO 400 mg Q4H PRN Administration Indigestion Dronabinol 2.5 mg 10/02/21 06:00 10/03/21 10:51 Dronabinol (*Crx) 2.5 Mg Capsule PO Not Given 0600,1100 CLARKE Folic Acid 1 mg 09/26/21 09:00 10/03/21 08:07 Folic Acid 1 Mg Tablet PO 1 mg DAILY CLARKE Administration Heparin Sodium (Porcine) 5,000 units 09/27/21 21:00 10/03/21 08:06 Heparin Sodium 5,000 Units/Ml Vial SUB-Q 5,000 units Q12HR CLARKE Administration Sodium Chloride 1,000 mls @ 100 mls/hr 10/01/21 09:15 10/03/21 02:56 Normal Saline Iv IV CONT 100 mls/hr .Q10H CLARKE Administration Lactulose 10 gm 09/26/21 00:25 Lactulose 20 Gm/30 Ml Udc PO TID PRN Constipation Lorazepam 1 mg 09/26/21 21:00 10/02/21 21:18 Lorazepam (*Crx) 1 Mg Tablet PO 1 mg HS CLARKE Administration Lorazepam 0.5 mg 10/03/21 11:03 10/03/21 11:14 Lorazepam (*Crx) 0.5 Mg Tablet PO 0.5 mg TID PRN Administration Anxiety Metoclopramide HCl 10 mg 10/01/21 18:00 10/03/21 12:09 Metoclopramide Hcl Inj 10 Mg/2 Ml Vial IV PUSH 10 mg Q6HR CLARKE Administration Ondansetron HCl 4 mg 09/25/21 21:08 10/02/21 19:20 Ondansetron Inj 4 Mg/2 Ml Vial IV PUSH 4 mg Q4H PRN Administration Nausea Pantoprazole Sodium 40 mg 09/26/21 09:00 10/03/21 08:06 Pantoprazole Sodium Iv 40 Mg Vial IV PUSH 40 mg Q12HR CLARKE Administration Sucralfate 1 gm 09/26/21 01:00 10/03/21 12:09 Sucralfate 1 Gm Tablet PO 1 gm Q4HR CLARKE Administration Trimethobenzamide HCl 200 mg 10/01/21 13:00 Trimethobenzamide Hcl 200 Mg/2 Ml Vial IM Q6H PRN Nausea And Vomiting Radiology Results: ITS Impressions Chest X-Ray 09/25/21 19:25 IMPRESSION: Bullous emphysema and chronic interstitial changes No pulmonary infiltrate or consolidation is evident Chest CTA 09/30/21 23:26 IMPRESSION: 1. Left upper lobe spiculated nodule most consistent with primary lung cancer. 2. Infiltrative appearing left hilar and aortopulmonary window soft tissue. 3. Right hilar lymphadenopathy. 4. Rather diffuse but basilar predominant groundglass airspace disease, could be edema but nonspecific with differential considerations above. 5. Bilateral adrenal gland nodule, indeterminate. 6. Recommend PET/CT.
[2021-10-03 13:15] VITALS: BP 112/75; PULSE 90; RESP 16; TEMP 36.5; O2SAT 92
--- NOTE | 2021-10-03 13:57 | PM.IMPN ---
Progress Note: A&P Assessment and Plan (1) Intractable nausea and vomiting: Code(s): R11.2 - Nausea with vomiting, unspecified Status: Acute Assessment and Plan: ct abdomen Abdomen/Pelvis CT 09/20/21 13:46 IMPRESSION: 1. No acute intra-abdominal/pelvic process. 2. Small pericardial effusion. 3. Wall thickening the distal esophagus suspicious for esophagitis which could be infectious, inflammatory in etiology or due to reflux. 4. Nodular thickening the bilateral adrenal glands, enhancement in the left and lower attenuation in the right which raises concern for metastatic disease. Correlate with any prior outside imaging. 5. Indeterminate 9 mm lytic lesion at the left femoral head also raising suspicion for metastatic disease. Most helpful for determining pole of suspicion would be comparison with any prior outside imaging. Sp EGD findings of Gastric Retention. Pt doing better with tigan, reglan, protonix combination change to oral and consider dc kike with nm scan and pet scan and oncology follow up and gi follow up if patient wishes (2) Acute hyponatremia: Code(s): E87.1 - Hypo-osmolality and hyponatremia Status: Acute Assessment and Plan: Sodium is 134 can dc fluids (3) Metastatic lung cancer (metastasis from lung to other site): Qualifiers: Laterality: unspecified laterality Qualified Code(s): C34.90 - Malignant neoplasm of unspecified part of unspecified bronchus or lung Code(s): C34.90 - Malignant neoplasm of unspecified part of unspecified bronchus or lung Status: Acute Assessment and Plan: Patient is currently undergoing chemotherapy and radiation treatment Follow-up in outpatient setting. (4) Fever: Qualifiers: Fever type: unspecified Qualified Code(s): R50.9 - Fever, unspecified Code(s): R50.9 - Fever, unspecified Status: Resolved Assessment and Plan: Resolved Subjective Date/time seen: 10/03/21 13:57 Interval history: Interval history: 56-year-old male with past medical history significant for lung cancer with metastatic disease undergoing radiation and chemotherapy. Pt having intractable nausea and heart burn. Denies abdominal pain or diarrhea. CT shows esophagitis continue PPI and antiemetics for now. CT abdomen - 1. No acute intra-abdominal/pelvic process. 2. Small pericardial effusion. 3. Wall thickening the distal esophagus suspicious for esophagitis which could be infectious, inflammatory in etiology or due to reflux. 4. Nodular thickening the bilateral adrenal glands, enhancement in the left and lower attenuation in the right which raises concern for metastatic disease. Correlate with any prior outside imaging. 5. Indeterminate 9 mm lytic lesion at the left femoral head also raising suspicion for metastatic disease. Most helpful for determining pole of suspicion would be comparison with any prior outside imaging. 09/29/2021 ongoing nausea and vomiting tolerating, jello today, GI consulted today 09/30/2021 pt is going fo EGD today for intractable nausea and vomiting 10/03/2021 pt nausea and vomiting are better today long discussion about medical condition and prognosis and treatments by the bedside Review of Systems Review of Systems: All systems reviewed & are unremarkable except as noted in HPI and below Exam Const: Orientation/consciousness: oriented to person HENMT: Head: normal to inspection Resp: Effort & Inspection: no respiratory distress Auscultation: no rhonchi and no wheezes Cardio: Rate: regular rate Rhythm: regular rhythm GI: Inspection: normal to inspection Auscultation: normal bowel sounds Neuro: General: oriented to person Objective Data Vital Signs Vital Signs: Vital Signs - 24 hr 10/02/21 20:40 10/03/21 05:35 Temperature 36.9 C 36.5 C Pulse Rate 97 99 Respiratory Rate 18 16 Blood Pressure 124/75 119/70 Pulse Oximetry 95 94 Intake/Output Intake/Output: Intake
[2021-10-03] MEDS: TRIMETHOBENZAMIDE HCL 200 MG/2 ML VIAL IM (21:23)
[2021-10-03] MEDS: LORazepam (*CRX) 1 MG TABLET PO (21:52)
[2021-10-03 22:00] VITALS: BP 124/81; PULSE 106; RESP 18; TEMP 36.9; O2SAT 92
[2021-10-03 23:50] VITALS: BP 135/38; PULSE 89; RESP 18; TEMP 36.7; O2SAT 95
[2021-10-04] MEDS: METOCLOPRAMIDE HCL INJ 10 MG/2 ML VIAL IV PUSH ×2 (00:11→06:41)
[2021-10-04] MEDS: MORPHINE SULFATE (*CRX) 4 MG/ML INJ IV PUSH ×2 (00:13→12:26)
[2021-10-04 01:00] VITALS: O2SAT 94
[2021-10-04 05:44] VITALS: BP 112/59; PULSE 84; RESP 18; TEMP 36.3; O2SAT 95
[2021-10-04 05:53] LABS: Anion Gap 7 mmol/L (8-16); Blood Urea Nitrogen 7 mg/dL (9-20); Calcium 8.7 mg/dL (8.4-10.2); Carbon Dioxide 27 mmol/L (22-30); Chloride 100 mmol/L (98-107); Estimated CRCL calculation 95 ml/min; Estimated Glomerular Filt Rate > 60; Glucose 98 mg/dL (65-110); Potassium 4.1 mmol/L (3.4-5.0); Sodium 134 mmol/L (137-145)
[2021-10-04 08:00] VITALS: PULSE 104; RESP 15; O2SAT 95
[2021-10-04] MEDS: HEPARIN SODIUM 5,000 UNITS/ML VIAL 5000 UNITS SUB-Q ×2 (09:56→20:50)
[2021-10-04] MEDS: PANTOPRAZOLE SODIUM IV 40 MG VIAL IV PUSH ×2 (09:57→20:50)
--- NOTE | 2021-10-04 10:56 | PM.IMPN ---
Progress Note: A&P Assessment and Plan (1) Intractable nausea and vomiting: Code(s): R11.2 - Nausea with vomiting, unspecified Status: Acute Assessment and Plan: ct abdomen Abdomen/Pelvis CT 09/20/21 13:46 IMPRESSION: 1. No acute intra-abdominal/pelvic process. 2. Small pericardial effusion. 3. Wall thickening the distal esophagus suspicious for esophagitis which could be infectious, inflammatory in etiology or due to reflux. 4. Nodular thickening the bilateral adrenal glands, enhancement in the left and lower attenuation in the right which raises concern for metastatic disease. Correlate with any prior outside imaging. 5. Indeterminate 9 mm lytic lesion at the left femoral head also raising suspicion for metastatic disease. Most helpful for determining pole of suspicion would be comparison with any prior outside imaging. Sp EGD findings of Gastric Retention. Pt doing better with tigan, reglan, protonix combination change to oral and consider dc kike with nm scan and pet scan and oncology follow up and gi follow up if patient wishes 10/04/2021 - Pt. reports to this provider today that he is NOT doing better overall, and that he is still nauseated and still vomiting up bile. (Noted there is a bag of it next to the bed.) - He is not able to do his Gastric Emptying study today as they are only performed on Tuesdays, and he needs to be off of his Reglan before it can be done. Reglan is held at this time and the pt. will have his study tomorrow with being NPO after MN. (2) Acute hyponatremia: Code(s): E87.1 - Hypo-osmolality and hyponatremia Status: Resolved Assessment and Plan: RESOLVED (3) Metastatic lung cancer (metastasis from lung to other site): Qualifiers: Laterality: unspecified laterality Qualified Code(s): C34.90 - Malignant neoplasm of unspecified part of unspecified bronchus or lung Code(s): C34.90 - Malignant neoplasm of unspecified part of unspecified bronchus or lung Status: Acute Assessment and Plan: - Patient is currently undergoing chemotherapy and radiation treatment, which is likely the source of the patient's N/V. - Follow-up in outpatient setting. (4) Fever: Qualifiers: Fever type: unspecified Qualified Code(s): R50.9 - Fever, unspecified Code(s): R50.9 - Fever, unspecified Status: Resolved Assessment and Plan: - Resolved, no further fevers to report. Additional Plan Time Spent With Patient Time with patient: 15 - 25 minutes Subjective Date/time seen: 10/04/21 0840 This 56 year old male patient is examined at the bedside in interval assessment. He is scheduled for a gastric emptying study, but he cannot do it until they are here tomorrow. His reglan has been held today and he has been allowed to eat. He will need to be NPO after midnight for the procedure. He continues to have N/V despite the anti-emetics being used; (Zofran, Tigan and Reglan). He states that nothing we have been able to do helps thus far, and he seems to be getting discouraged. The pt. has no new complaints of any CP, Dyspnea, Urological symptoms. Review of Systems Review of Systems: A full 12 point ROS was performed and is otherwise unremarkable with exception of what is in HPI. All systems reviewed & are unremarkable except as noted in HPI and below Exam Const: General: comfortable and no acute distress HENMT: Mouth: Yes moist mucous membranes Eyes: Sclera: sclerae normal Neck: Neck: supple and no JVD Resp: Effort & Inspection: normal respiratory effort Auscultation: clear to auscultation bilaterally Cardio: Rate: regular rate Rhythm: regular rhythm GI: GI Palp: Yes Soft to palpation and No Tenderness to palpation present (GI) Auscultation: normal bowel sounds Skin: General skin exam: normal color Neuro: Cognition (Neuro): normal cognition Speech: normal speech Extrem: General: normal to inspection Psych: Affect: N
--- NOTE | 2021-10-04 11:45 | PCNWS ---
Weekly nutritional screen. Patient is tolerating current diet with adequate intake. No weight loss reported. Plans for NPO tomorrow for gastric emptying study. No nutritional needs at this time.
[2021-10-04] MEDS: ONDANSETRON INJ 4 MG/2 ML VIAL IV PUSH (12:22)
[2021-10-04 14:00] VITALS: BP 115/50; PULSE 104; RESP 15; TEMP 35.9; O2SAT 95
--- NOTE | 2021-10-04 14:00 | WPDGIPROGNO ---
Progress Note: A&P Assessment and Plan (1) Intractable nausea and vomiting: Code(s): R11.2 - Nausea with vomiting, unspecified Status: Acute Assessment and Plan: multifactorial, on appropriate medical treatment will complete tomorrow gastric emptying study he will need follow-up with oncologist (2) Metastatic lung cancer (metastasis from lung to other site): Qualifiers: Laterality: unspecified laterality Qualified Code(s): C34.90 - Malignant neoplasm of unspecified part of unspecified bronchus or lung Code(s): C34.90 - Malignant neoplasm of unspecified part of unspecified bronchus or lung Status: Acute Assessment and Plan: will complete PET scan in near future (3) Retained food in stomach: Code(s): K31.89 - Other diseases of stomach and duodenum Status: Acute Subjective Date/time seen: 10/04/21 14:00 Interval history: still with nausea but mostly throwing up after eating- mostly unchanged, no abdominal pain Review of Systems Review of Systems: All systems reviewed & are unremarkable except as noted in HPI and below Exam Const: General: comfortable and no acute distress HENMT: Mouth: Yes moist mucous membranes Eyes: Sclera: sclerae normal Neck: Neck: supple and no JVD Resp: Effort & Inspection: normal respiratory effort Auscultation: clear to auscultation bilaterally Cardio: Rate: regular rate Rhythm: regular rhythm GI: GI Palp: Yes Soft to palpation, No Tenderness to palpation present (GI) and No Guarding due to palpation present (GI) Auscultation: normal bowel sounds Skin: General skin exam: normal color Neuro: Cognition (Neuro): normal cognition Speech: normal speech Extrem: General: normal to inspection Psych: Affect: No normal affect (Flat affect) and Sad affect present Other: Pt. appears depressed Objective Data Vital Signs Vital Signs: Vital Signs - 24 hr 10/03/21 22:00 10/03/21 23:50 10/04/21 01:00 Temperature 98.5 F 98.0 F Pulse Rate 106 H 89 Respiratory Rate 18 18 Blood Pressure 124/81 135/38 L Pulse Oximetry 92 95 94 10/04/21 05:44 Temperature 97.3 F L Pulse Rate 84 Respiratory Rate 18 Blood Pressure 112/59 L Pulse Oximetry 95 Intake/Output Intake/Output: Intake & Output 10/01/21 10/02/21 10/03/2122 23:59 23:59 23:59 23:59 Intake Total 0 2640 3150 Output Total 300 1250 1500 Balance 1740 1390 1650 Meds/Results Medications: Active Medications Generic Name Dose Route Start Last Admin Trade Name Freq PRN Reason Stop Dose Admin Acetaminophen 650 mg 09/28/21 20:50 10/03/21 21:52 Acetaminophen 325 Mg Tablet PO 650 mg Q6H PRN Administration Mild Pain (1-3) or Fever Albuterol 2 puff 09/26/21 00:25 Albuterol Sulfate (*Sp) Aerosol 1 Puff INHALATION Q4HRT PRN Shortness Of Breath Calcium Carbonate 400 mg 09/28/21 05:10 09/29/21 15:23 Calcium Carbonate (Tums) 500 Mg (200 Mg Elemental) PO 400 mg Q4H PRN Administration Indigestion Dronabinol 2.5 mg 10/02/21 06:00 10/04/21 12:30 Dronabinol (*Crx) 2.5 Mg Capsule PO Not Given 0600,1100 CLARKE Folic Acid 1 mg 09/26/21 09:00 10/03/21 08:07 Folic Acid 1 Mg Tablet PO 1 mg DAILY CLARKE Administration Heparin Sodium (Porcine) 5,000 units 09/27/21 21:00 10/04/21 09:56 Heparin Sodium 5,000 Units/Ml Vial SUB-Q 5,000 units Q12HR CLARKE Administration Lactulose 10 gm 09/26/21 00:25 Lactulose 20 Gm/30 Ml Udc PO TID PRN Constipation Lorazepam 1 mg 09/26/21 21:00 10/03/21 21:52 Lorazepam (*Crx) 1 Mg Tablet PO 1 mg HS CLARKE Administration Lorazepam 0.5 mg 10/03/21 11:03 10/03/21 11:14 Lorazepam (*Crx) 0.5 Mg Tablet PO 0.5 mg TID PRN Administration Anxiety Metoclopramide HCl 10 mg 10/01/21 18:00 10/04/21 06:41 Metoclopramide Hcl Inj 10 Mg/2 Ml Vial IV PUSH 10 mg Q6HR CLARKE Administration Morphine Sulfate 4 mg 10/03/21 23:58
[2021-10-04] MEDS: SCOPOLAMINE 1.5 MG PATCH TRANSDERM (15:22)
[2021-10-04] MEDS: SUCRALFATE 1 GM TABLET PO (15:23)
[2021-10-04] MEDS: FOLIC ACID 1 MG TABLET PO (15:23)
[2021-10-04 20:46] VITALS: BP 104/73; PULSE 119; RESP 20; TEMP 36.5; O2SAT 97
[2021-10-04] MEDS: LORazepam (*CRX) 1 MG TABLET PO (20:51)
[2021-10-04 23:26] VITALS: BP 104/75
[2021-10-05] MEDS: MORPHINE SULFATE (*CRX) 4 MG/ML INJ IV PUSH (00:33)
[2021-10-05 04:57] VITALS: BP 106/71; PULSE 89; RESP 18; TEMP 36.3; O2SAT 90
[2021-10-05 06:07] LABS: Basophils Absolute Auto 0.1 K/mm3 (0.0-0.1); Eosinophils Absolute Auto 0.1 K/mm3 (0-0.3); Eosinophils Percent Auto 2.5 % (0-4.4); Hematocrit 32.6 % (42.0-52.0); Hemoglobin 10.4 g/dL (14.0-18.0); Lymphocytes Absolute Auto 1.69 K/mm3 (0.9-3.2); Lymphocytes Percent Auto 33.1 % (18.3-44.2); Mean Corpuscular HGB Conc 31.9 g/dl (32-36); Mean Corpuscular Hemoglobin 29.7 pg (26-34); Mean Corpuscular Volume 93.1 fl (80-100); Mean Platelet Volume 10.9 fl (7.4-10.4); Monocytes Absolute Auto 1.4 K/mm3 (0.1-0.6); Monocytes Percent Auto 27.8 % (2.6-8.5); Neutrophils Absolute Auto 1.7 K/mm3 (1.3-6.7); Neutrophils Percent Auto 33.6 % (45.5-73.1); Platelet Count Result 285 k/mm3 (150-375); Red Cell Distribution Width 15.1 % (11.5-14.5); White Blood Count 5.1 K/mm3 (4.5-10.0)
[2021-10-05 06:21] LABS: Alanine Aminotransferase 43 U/L (4-50); Albumin Level 3.5 g/dL (3.5-5.1); Alkaline Phosphatase 68 U/L (38-126); Anion Gap 9 mmol/L (8-16); Aspartate Amino Transferase 62 U/L (17-59); Bilirubin,Total 0.4 mg/dL (0.2-1.3); Blood Urea Nitrogen 11 mg/dL (9-20); Calcium 8.9 mg/dL (8.4-10.2); Carbon Dioxide 26 mmol/L (22-30); Chloride 97 mmol/L (98-107); Estimated CRCL calculation 86 ml/min; Estimated Glomerular Filt Rate > 60; Glucose 102 mg/dL (65-110); Magnesium 1.8 mg/dL (1.6-2.3); Potassium 4.1 mmol/L (3.4-5.0); Sodium 132 mmol/L (137-145)
[2021-10-05] MEDS: SUCRALFATE 1 GM TABLET PO ×3 (06:48→14:30)
--- NOTE | 2021-10-05 07:18 | PM.DS ---
DS: Admitting Diagnosis Discharge Date 10/05/2021 Admitting Diagnosis 1) Intractable Nausea and Vomiting 2) Acute Hyponatremia 3) Metastatic Lung CA DS: Discharge Diagnosis Discharge Diagnosis (1) Intractable nausea and vomiting: Code(s): R11.2 - Nausea with vomiting, unspecified Status: Acute Assessment and Plan: ct abdomen Abdomen/Pelvis CT 09/20/21 13:46 IMPRESSION: 1. No acute intra-abdominal/pelvic process. 2. Small pericardial effusion. 3. Wall thickening the distal esophagus suspicious for esophagitis which could be infectious, inflammatory in etiology or due to reflux. 4. Nodular thickening the bilateral adrenal glands, enhancement in the left and lower attenuation in the right which raises concern for metastatic disease. Correlate with any prior outside imaging. 5. Indeterminate 9 mm lytic lesion at the left femoral head also raising suspicion for metastatic disease. Most helpful for determining pole of suspicion would be comparison with any prior outside imaging. Sp EGD findings of Gastric Retention. Pt doing better with tigan, reglan, protonix combination change to oral and consider dc kike with nm scan and pet scan and oncology follow up and gi follow up if patient wishes 10/04/2021 - Pt. reports to this provider today that he is NOT doing better overall, and that he is still nauseated and still vomiting up bile. (Noted there is a bag of it next to the bed.) - He is not able to do his Gastric Emptying study today as they are only performed on Tuesdays, and he needs to be off of his Reglan before it can be done. Reglan is held at this time and the pt. will have his study tomorrow with being NPO after MN. 10/05/2021 - Continued but less emesis overnight. The pt. had gastric emptying study completed today. He will be discharged to home to follow up with his Oncologist for further recommendations. He has adequate intake and output. He is aware that he will likely have to deal with a certain degree of nausea chronically. For discharge, we are sending him with Zofran, Reglan, Scopolomine and Phenergan. (2) Acute hyponatremia: Code(s): E87.1 - Hypo-osmolality and hyponatremia Status: Resolved Assessment and Plan: RESOLVED (3) Metastatic lung cancer (metastasis from lung to other site): Qualifiers: Laterality: unspecified laterality Qualified Code(s): C34.90 - Malignant neoplasm of unspecified part of unspecified bronchus or lung Code(s): C34.90 - Malignant neoplasm of unspecified part of unspecified bronchus or lung Status: Acute Assessment and Plan: - Patient is currently undergoing chemotherapy and radiation treatment, which is likely the source of the patient's N/V. - Follow-up in outpatient setting. - Follow up with your Oncologist in [place] at [facility]. (4) Fever: Qualifiers: Fever type: unspecified Qualified Code(s): R50.9 - Fever, unspecified Code(s): R50.9 - Fever, unspecified Status: Resolved Assessment and Plan: - Resolved, no further fevers to report. DS: Summary Hospital Course Reason for hospitalization: Intractable Nausea and Vomiting. Hospital Course: This very pleasant 56 year old male patient with significant PMH of Metastatic Lung CA currently receiving Keytruda and Alimta under Dr. Metcalf every three weeks, presented to the ER on 09/25/2021 with complaints of having intractable N/V for one week. He had his urine output decrease as he had been vomiting so much that he was dehydrated. In the ED, CT imaging showed that there was no acute intra-abdominal process, there was small pericardial effusion, wall thickening of the distal esophagus suspicious for esophagitis which could be infectious, inflammatory in etiology or due to reflux. There was also nodular thickening in the bilateral adrenal glands with enhancement in the left and lower attenuation in the right raising concern for metastatic disease, and an indetermina
[2021-10-05] MEDS: FOLIC ACID 1 MG TABLET PO (08:13)
[2021-10-05] MEDS: HEPARIN SODIUM 5,000 UNITS/ML VIAL 5000 UNITS SUB-Q (08:13)
[2021-10-05] MEDS: PANTOPRAZOLE SODIUM IV 40 MG VIAL IV PUSH (08:13)
--- NOTE | 2021-10-05 11:47 | WPDGIPROGNO ---
Progress Note: A&P Assessment and Plan (1) Intractable nausea and vomiting: Code(s): R11.2 - Nausea with vomiting, unspecified Status: Acute Assessment and Plan: multifactorial, continue current medical treatment he is getting gastric emptying study and then he is going home he will need follow-up with oncologist anti-hu pending (2) Metastatic lung cancer (metastasis from lung to other site): Qualifiers: Laterality: unspecified laterality Qualified Code(s): C34.90 - Malignant neoplasm of unspecified part of unspecified bronchus or lung Code(s): C34.90 - Malignant neoplasm of unspecified part of unspecified bronchus or lung Status: Acute Assessment and Plan: will complete PET scan in near future (3) Retained food in stomach: Code(s): K31.89 - Other diseases of stomach and duodenum Status: Acute Assessment and Plan: ? gastroparesis pending gastric emptying study Subjective Date/time seen: 10/05/21 11:47 Interval history: no major changes, he will complete gastric emptying study and then go home later today Review of Systems Review of Systems: All systems reviewed & are unremarkable except as noted in HPI and below Exam Const: General: comfortable and no acute distress HENMT: Mouth: Yes moist mucous membranes Eyes: Sclera: sclerae normal Neck: Neck: supple and no JVD Resp: Effort & Inspection: normal respiratory effort Auscultation: clear to auscultation bilaterally Cardio: Rate: regular rate Rhythm: regular rhythm GI: GI Palp: Yes Soft to palpation, No Tenderness to palpation present (GI) and No Guarding due to palpation present (GI) Auscultation: normal bowel sounds Skin: General skin exam: normal color Neuro: Cognition (Neuro): normal cognition Speech: normal speech Extrem: General: normal to inspection Psych: Affect: No normal affect (Flat affect) and Sad affect present Other: Pt. appears depressed Objective Data Vital Signs Vital Signs: Vital Signs - 24 hr 10/04/21 14:00 10/04/21 20:46 10/04/21 23:26 Temperature 96.6 F L 97.7 F Pulse Rate 104 H 119 H Respiratory Rate 15 20 Blood Pressure 115/50 L 104/73 104/75 Pulse Oximetry 95 97 10/05/21 04:57 Temperature 97.3 F L Pulse Rate 89 Respiratory Rate 18 Blood Pressure 106/71 Pulse Oximetry 90 Intake/Output Intake/Output: Intake & Output 10/02/21 10/03/21 10/04/21 10/05/21 23:59 23:59 23:59 23:59 Intake Total 2640 3150 910 390 Output Total 1250 1500 Balance 1390 1650 910 390 Meds/Results Medications: Active Medications Generic Name Dose Route Start Last Admin Trade Name Freq PRN Reason Stop Dose Admin Acetaminophen 650 mg 09/28/21 20:50 10/03/21 21:52 Acetaminophen 325 Mg Tablet PO 650 mg Q6H PRN Administration Mild Pain (1-3) or Fever Albuterol 2 puff 09/26/21 00:25 Albuterol Sulfate (*Sp) Aerosol 1 Puff INHALATION Q4HRT PRN Shortness Of Breath Calcium Carbonate 400 mg 09/28/21 05:10 09/29/21 15:23 Calcium Carbonate (Tums) 500 Mg (200 Mg Elemental) PO 400 mg Q4H PRN Administration Indigestion Dronabinol 2.5 mg 10/02/21 06:00 10/04/21 12:30 Dronabinol (*Crx) 2.5 Mg Capsule PO Not Given 0600,1100 CLARKE Folic Acid 1 mg 09/26/21 09:00 10/05/21 08:13 Folic Acid 1 Mg Tablet PO 1 mg DAILY CLARKE Administration Heparin Sodium (Porcine) 5,000 units 09/27/21 21:00 10/05/21 08:13 Heparin Sodium 5,000 Units/Ml Vial SUB-Q 5,000 units Q12HR CLARKE Administration Lactulose 10 gm 09/26/21 00:25 Lactulose 20 Gm/30 Ml Udc PO TID PRN Constipation Lorazepam 1 mg 09/26/21 21:00 10/04/21 20:51 Lorazepam (*Crx) 1 Mg Tablet PO 1 mg HS CLARKE Administration Lorazepam 0.5 mg 10/03/21 11:03 10/03/21 11:14 Lorazepam (*Crx) 0.5 Mg Tablet PO 0.5 mg TID PRN Administration Anxiety Metoclopramide HCl 10 mg 10/01/21 18:00 10/04/21 06:41 Metocl
[2021-10-05] MEDS: ONDANSETRON INJ 4 MG/2 ML VIAL IV PUSH (11:54)
[2021-10-05 14:00] VITALS: BP 111/73; PULSE 88; RESP 20; TEMP 36.2; O2SAT 100
[2021-10-05] MEDS: METOCLOPRAMIDE HCL INJ 10 MG/2 ML VIAL IV PUSH (14:30)
== END 2021-10-05 15:21 | disposition home or self-care (01) | DRG 254 ==
LOC: ANHED 21:08 → ANH2MED 21:29
PROVIDERS: Family Medicine; Internal Medicine; Internal Medicine Gastroenterology; Nurse Practitioner Adult Health; Physician Assistant; Admitting Provider Internal Medicine; Emergency Provider Emergency Medicine; PCP Nurse Practitioner Family; Visit Provider Nurse Practitioner Adult Health
PROC: 0DJ08ZZ Inspection of Upper Intestinal Tract, Via Natural or Artificial Opening Endoscopic (ICD-10-PCS; CPT 43235; principal; 2021-09-30 12:30)
DX: K31.89 Other diseases of stomach and duodenum (principal); K31.84 Gastroparesis; K29.70 Gastritis, unspecified, without bleeding; C34.90 Malignant neoplasm of unspecified part of unspecified bronchus or lung; C79.9 Secondary malignant neoplasm of unspecified site; R11.2 Nausea with vomiting, unspecified; E86.0 Dehydration; T45.1X5A Adverse effect of antineoplastic and immunosuppressive drugs, initial encounter; E87.1 Hypo-osmolality and hyponatremia; R50.9 Fever, unspecified; Z20.822 Contact with and (suspected) exposure to COVID-19; I10 Essential (primary) hypertension; Z87.891 Personal history of nicotine dependence
CPT/HCPCS: 36415; 71046; 71275; 78264; 80048; 80053; 81001; 82948; 83690; 83735; 85025; 88305; 93005; 96361; 96374; 96375; 96376; 99285; A9270; A9541; C9113; C9803; G0378; G0379; J1644; J2060; J2270; J2405; J2704; J2765; J3250; J7030; J7120; Q9967; U0003; U0005